=== PATIENT | female | born 1945 | race Caucasian/White ===

== ENCOUNTER 2017-07-17 22:47 | Inpatient (IN) | payer MEDICARE, OTHER ==
[~2017-07-17] VITALS: Ht 160 cm; Wt 102.7 kg
[2017-07-17 23:12] LABS: BILIRUBIN,URINE NEGATIVE (NEG); GLUCOSE,URINE 250 mg/dL (NEG); NITRITE,URINE NEGATIVE (NEG); PH,URINE 6.5; PROTEIN,URINE NEGATIVE (NEG-TRACE); UROBILINOGEN,URINE 0.2 mg/dL (0.2 mg/dL)
--- NOTE | 2017-07-17 23:15 | ED.ADGEN ---
Adult General Chief Complaint Chief Complaint: DIZZY/LIGHT HEADED HPI HPI Patient is a 71 year old woman, with a history of atrial fibrillation, hypertension, hyperlipidemia, obesity, fibromyalgia, who uses Coumadin daily, along with Sotalol, who presents to the emergency department with complaint of dizziness, lightheadedness, nausea, and shortness of breath that began around 2: 00 in the afternoon. No syncope, no injuries. Patient states she was discharged from [facility] yesterday, states that she been admitted for similar symptoms and at that time was told that she "had atrial fibrillation". She states that her heart rate was rapid, and that her heart rate was controlled. 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 She states that they did not perform additional studies aside from ECG well she was at the hospital. She states that she has been compliant with all medications. She states she was feeling better until around 2:00 in the afternoon, when she began feeling lightheaded, denies any syncope, any injuries, any focal weakness , numbness or tingling. States that she has mild shortness of breath also but no chest pain. Nausea but no vomiting. She has no swelling of extremities, no history of DVT or PE, no recent travel or surgery. Denies any recent changes in medication or missed doses. She describes a lightheadedness as though she might pass out, and also feeling as though the room is spinning around her she states she experienced previously but not currently. She states previously the symptoms of associated with rapid A. fib. Patient noted to have a heart rate of 86-90 upon arrival to the emergency department, in sinus rhythm, oxygen saturation is 98% on room air, respiratory rate is 18-20 and unlabored. Review of Systems Review of Systems Constitutional: Denies fever or chills. []Lightheadedness. Eyes: Denies change in visual acuity. [] HENT: Denies nasal congestion or sore throat. [] Respiratory: Denies cough, complaining of shortness of breath. Cardiovascular: Denies chest pain or edema. [] GI: Denies abdominal pain, nausea, vomiting, bloody stools or diarrhea. [] : Denies dysuria. [] Musculoskeletal: Denies back pain or joint pain. [] Integument: Denies rash. [] Neurologic: Denies headache, focal weakness or sensory changes. Dizziness.[] Endocrine: Denies polyuria or polydipsia. [] Lymphatic: Denies swollen glands. [] Psychiatric: Denies depression or anxiety. [] Current Medications Current Medications Current Medications Medications (Trade) Dose Ordered Sig/Ashley Start Time Stop Time Status Last Admin Dose Admin Fentanyl Citrate (Fentanyl 2ml Vial) 25 mcg PRN Q15MIN PRN 07/18/17 01:45 07/19/17 01:44 Potassium Chloride (KCl Oral Soln) 40 meq 1X ONCE 07/18/17 01:30 07/18/17 01:31 DC Allergies Allergies Allergies Coded Allergies Type Severity Reaction Last Updated Verified Penicillins Allergy Intermediate "rash 50 years ago" 07/18/17 Yes ibuprofen Allergy Intermediate "im on coumadin" 07/18/17 Yes Physical Exam Physical Exam Constitutional: Well developed, well nourished, no acute distress, non-toxic appearance. [] HENT: Normocephalic, atraumatic, bilateral external ears normal, oropharynx moist, no oral exudates, nose normal. [] Eyes: PERRLA, EOMI, conjunctiva normal, no discharge. [] Neck: Normal range of motion, no tenderness, supple, no stridor. [] Cardiovascular:Heart rate regular rhythm, no murmur, S1, S2, no rubs or gallops , soft heart sounds. [] Lungs & Thorax: Bilateral breath sounds clear to auscultation, no wheezing, rhonchi, rales. No chest wall crepitus or tenderness. [] Abdomen: Bowel sounds normal, soft, obese, no rebound, rigidity, no guarding, no tenderness, no masses, no pulsatile masses. [] Skin: Warm, dry, no erythema, no rash. [] Back: No tenderness, no CVA tenderness. [] Extremities: No tenderness, no cyanosis, no clubbing, ROM intact, no edema. [] Neurologic: Alert and oriented X 3, normal motor function, normal sensory function, no focal deficits noted. [5-5 strength in all extremities, normal neurologic examination.] Psychologic: Affect normal, judgement normal, mood normal. [] Current Patient Data Vital Signs Vital Signs Date Time Temp Pulse Resp B/P (MAP) Pulse Ox O2 Delivery O2 Flow Rate FiO2 07/17/17 22:57 98.0 90 20 181/97 (125) 98 Room Air 98.0 Lab Values Laboratory Tests Test 07/17/17 23:00 07/17/17 23:57 Urine Collection Type Unknown Urine Color Yellow Urine Clarity Clear Urine pH 6.5 Urine Specific [place] <=1.005 Urine Protein Negative mg/dL (NEG-TRACE) Urine Glucose (UA) 250 mg/dL (NEG) Urine Ketones (Stick) Negative mg/dL (NEG) Urine Blood Negative (NEG) Urine Nitrite Negative (NEG) Urine Bilirubin Negative (NEG) Urine Urobilinogen Dipstick 0.2 mg/dL (0.2 mg/dL) Urine Leukocyte Esterase Small (NEG) Urine RBC Occ /HPF (0-2) Urine WBC 5-10 /HPF (0-4) Urine Squamous Epithelial Cells Mod /LPF Urine Bacteria Few /HPF (0-FEW) Urine Mucus Slight /LPF Urine Opiates Screen Pos (NEG) Urine Methadone Screen Neg (NEG) Urine Barbiturates Neg (NEG) Urine Phencyclidine Screen Neg (NEG) Urine Amphetamine/Methamphetamine Neg (NEG) Urine Benzodiazepines Screen Neg (NEG) Urine Cocaine Screen Neg (NEG) Urine Cannabinoids Screen Neg (NEG) Urine Ethyl Alcohol Neg (NEG) White Blood Count 8.9 x10^3/uL (4.0-11.0) Red Blood Count 4.55 x10^6/uL (3.50-5.40) Hemoglobin 12.7 g/dL (12.0-15.5) Hematocrit 37.1 % (36.0-47.0) Mean Corpuscular Volume 82 fL (79-100) Mean Corpuscular Hemoglobin 28 pg (25-35) Mean Corpuscular Hemoglobin Concent 34 g/dL (31-37) Red Cell Distribution Width 16.2 % (11.5-14.5) H Platelet Count 219 x10^3/uL (140-400) Neutrophils (%) (Auto) 69 % (31-73) Lymphocytes (%) (Auto) 18 % (24-48) L Monocytes (%) (Auto) 10 % (0-9) H Eosinophils (%) (Auto) 1 % (0-3) Basophils (%) (Auto) 1 % (0-3) Neutrophils # (Auto) 6.2 x10^3uL (1.8-7.7) Lymphocytes # (Auto) 1.6 x10^3/uL (1.0-4.8) Monocytes # (Auto) 0.9 x10^3/uL (0.0-1.1) Eosinophils # (Auto) 0.1 x10^3/uL (0.0-0.7) Basophils # (Auto) 0.1 x10^3/uL (0.0-0.2) Prothrombin Time 24.2 SEC (11.7-14.0) H Prothrombin Time INR 2.3 (0.8-1.1) H PTT 57 SEC (24-38) H Sodium Level 138 mmol/L (136-145) Potassium Level 3.1 mmol/L (3.5-5.1) L Chloride Level 100 mmol/L (98-107) Carbon Dioxide Level 26 mmol/L (21-32) Anion Gap 12 (6-14) Blood Urea Nitrogen 13 mg/dL (7-20) Creatinine 0.7 mg/dL (0.6-1.0) Estimated GFR (Cockcroft-Gault) 82.0 BUN/Creatinine Ratio 19 (6-20) Glucose Level 200 mg/dL (70-99) H Calcium Level 9.2 mg/dL (8.5-10.1) Total Bilirubin 0.5 mg/dL (0.2-1.0) Aspartate Amino Transferase (AST) 16 U/L (15-37) Alanine Aminotransferase (ALT) 15 U/L (14-59) Alkaline Phosphatase 75 U/L (46-116) Troponin I Quantitative < 0.017 ng/mL (0.000-0.055) TL-Gzy-S-Type Natriuretic Peptide 360 pg/mL (0-124) H Total Protein 6.8 g/dL (6.4-8.2) Albumin 3.2 g/dL (3.4-5.0) L Albumin/Globulin Ratio 0.9 (1.0-1.7) L Lipase 138 U/L (73-393) Laboratory Tests 07/17/17 23:57 Laboratory Tests 07/17/17 23:57 EKG EKG EC: Sinus rhythm with occasional APCs noted, QTc of 477, OK 190, QRS of 104, left axis deviation with left anterior fascicular block noted, left ventricle hypertrophy noted with repolarization, [address] depression noted in lead 2, V4 and V5, abnormal ECG, does not meet STEMI criteria, no prior for comparison. As interpreted by me.[] Radiology/Procedures Radiology/Procedures Chest x-ray: One view: Patient with top normal cardiac silhouette, straightening left heart border, no infiltrates, no effusions, no pneumothorax, noted to have hardware in the neck, no soft tissue or other bony abnormalities identified. As interpreted by me.[] Course & Med Decision Making Course & Med Decision Making Pertinent Labs and Imaging studies reviewed. (See chart for details) Patient states that her dizziness is improved at this time, no syncope reported. She is agreeable to receiving evaluation the ED, I did discuss with the patient that she has not atrial fibrillation currently, and has no evidence of rapid heart rate. Patient states that she "never feels a rapid heart rate". CT of the head is unremarkable, x-ray does not reveal any concerning findings, patient noted to have hypokalemia with a K of 3.1. Otherwise laboratory studies not reveal any acutely concerning findings. I did discuss signs and patient, she is agreeable for admission to the hospital for continued monitoring and cardiology evaluation. Patient admitted to the service of Dr. Escalona, as a full admission, to the medical telemetry floor, bridge orders entered per discussion. Dragon Disclaimer Dragon Disclaimer This electronic medical record was generated, in whole or in part, using a voice recognition dictation system. Departure Impression: Primary Impression: Dizziness Additional Impression: Nausea Disposition: 09 ADMITTED INPATIENT Admitting Physician: Aline Escalona Condition: IMPROVED Problem Qualifiers KAREN DAVIS DO Jul 17, 2017 23:15
[2017-07-17 23:18] LABS: BACTERIA,URINE FEW /HPF (0-FEW); BARBITURATES NEG (NEG); BENZODIAZEPINES NEG (NEG); CANNABINOIDS NEG (NEG); COCAINE NEG (NEG); METHADONE NEG (NEG); OPIATES POS (NEG); PHENCYCLIDINE NEG (NEG); RBC,URINE OCC /HPF (0-2); SQUAMOUS EPITHELIAL CELL,UR MOD /LPF
--- NOTE | 2017-07-18 00:01 | RAD ---
CT head without contrast TECHNIQUE: [address] imaging skull base to vertex. HISTORY: Dizziness. FINDINGS: Mild generalized brain atrophy. Enlargement of the subarachnoid spaces anterior of the frontal lobes an anatomic variant. No intracranial hemorrhage, mass, hydrocephalus or infarction. Imaged orbits, paranasal sinuses, mastoids and bones are unremarkable. IMPRESSION: No acute intracranial CT abnormality. Exposure: One or more of the following individualized dose reduction techniques were utilized for this examination: 1. Automated exposure control 2. Adjustment of the mA and/or kV according to patient size 3. Use of iterative reconstruction technique Electronically signed by: Chiki Moreno MD (07/17/2017 11:57 PM) [id number]
[2017-07-18 00:05] LABS: BASO # 0.1 x10^3/uL (0.0-0.2); BASO % 1 % (0-3); EOS % 1 % (0-3); HEMATOCRIT 37.1 % (36.0-47.0); HEMOGLOBIN 12.7 g/dL (12.0-15.5); LYMPH # 1.6 x10^3/uL (1.0-4.8); LYMPH % 18 % (24-48); MEAN CORPUSCULAR HEMOGLOBIN 28 pg (25-35); MEAN CORPUSCULAR HGB CONC 34 g/dL (31-37); MEAN CORPUSCULAR VOLUME 82 fL (79-100); MONO % 10 % (0-9); NEUT % 69 % (31-73); PLATELET COUNT 219 x10^3/uL (140-400); RED BLOOD COUNT 4.55 x10^6/uL (3.50-5.40); RED CELL DISTRIBUTION WIDTH 16.2 % (11.5-14.5); WHITE BLOOD COUNT 8.9 x10^3/uL (4.0-11.0)
[2017-07-18] MEDS ORDERED: GLIP5TAB22 PO (00:10)
[2017-07-18] MEDS ORDERED: DULO30CA2 PO (00:10)
[2017-07-18] MEDS ORDERED: DILT240C2 PO (00:11)
[2017-07-18] MEDS ORDERED: WARF5TAB7 PO (00:11)
[2017-07-18] MEDS ORDERED: SOTA80TA48 PO (00:13)
[2017-07-18] MEDS ORDERED: CHLO25TA PO (00:13)
[2017-07-18] MEDS ORDERED: FEXO60TA25 PO (00:14)
[2017-07-18] MEDS ORDERED: LISI-334 PO (00:14)
[2017-07-18] MEDS ORDERED: HYDR-2758 PO (00:15)
[2017-07-18 00:18] LABS: INR 2.3 (0.8-1.1); PROTHROMBIN TIME PATIENT 24.2 SEC (11.7-14.0)
[2017-07-18 00:28] LABS: POTASSIUM 3.1 mmol/L (3.5-5.1); TOTAL BILIRUBIN 0.5 mg/dL (0.2-1.0); TOTAL PROTEIN 6.8 g/dL (6.4-8.2)
[2017-07-18 00:51] LABS: ALBUMIN 3.2 g/dL (3.4-5.0); ALBUMIN/GLOBULIN RATIO 0.9 (1.0-1.7); CALCIUM 9.2 mg/dL (8.5-10.1); CREATININE 0.7 mg/dL (0.6-1.0)
[2017-07-18] MEDS ORDERED: POTASSIUM CHLORIDE 20 MEQ/15 ML ORAL LIQUID. PO ONE (01:30)
[2017-07-18] MEDS ORDERED: fentaNYL PF VIAL 100 MCG/2 ML VIAL IV PRN ×2 (01:45→02:00)
[2017-07-18] MEDS ORDERED: ONDANSETRON PF 4 MG/2 ML VIAL. IV PRN (02:00)
[2017-07-18] MEDS ORDERED: DEXTROSE 50% 25 GM / 50ML DISP.SYRIN. IV PRN ×2 (02:00→09:00)
[2017-07-18] MEDS ORDERED: NITROGLYCERIN SUBLINGUAL 0.4 MG BOTTLE OF 25. SL PRN (02:00)
[2017-07-18] MEDS ORDERED: ACETAMINOPHEN 325 MG TABLET. PO PRN (02:00)
[2017-07-18] MEDS ORDERED: ACETAMINOPHEN 500 MG TABLET PO ONE (02:00)
[2017-07-18] MEDS ORDERED: diphenhydrAMINE HCL 25 MG CAPSULE PO PRN (03:15)
[2017-07-18 03:20] VITALS: BP 151/69
[2017-07-18] MEDS: HYDROcodone/APAP 5/325MG 1 TAB TABLET PO PRN ×2 (04:48→20:24)
[2017-07-18 07:33] VITALS: BP 143/80
--- NOTE | 2017-07-18 07:47 | EKG ---
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
[2017-07-18] MEDS: glipiZIDE ER 2.5 MG TAB.ER.24 PO SCH (07:55)
[2017-07-18] MEDS ORDERED: INSULIN ASPART 300 UNITS/3 ML INSULN.PEN SQ SCH (08:00)
--- NOTE | 2017-07-18 08:25 | RAD ---
Portable AP upright view CXR: Clinical indications: Dizziness and shortness of breath. Comparison: None available. Findings: No acute lung infiltrate or pleural effusion or pulmonary edema or lung mass or pneumothorax is seen. The heart size, pulmonary vasculature, mediastinum and both hattie are unremarkable. Impression: No acute radiographic abnormality is seen.
[2017-07-18] MEDS: SOTALOL 80 MG TABLET. PO SCH ×2 (09:20→19:16)
[2017-07-18] MEDS: DULoxetine HCL 30 MG CAPSULE.DR PO SCH (09:20)
[2017-07-18] MEDS: LISINOPRIL 20 MG TABLET PO SCH (09:21)
[2017-07-18] MEDS: CHLORTHALIDONE 25 MG TABLET. PO SCH (09:21)
[2017-07-18 11:35] VITALS: BP 139/65
[2017-07-18] MEDS: INSULIN ASPART 300 UNITS/3 ML INSULN.PEN SQ SCH ×2 (11:48→17:00)
--- NOTE | 2017-07-18 11:50 | PDOC1 ---
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 Was found to be in NSR not afib at ER with normal VS,. Pt was still unsteady hence admitted to have obs overnight, Pt claims they did not check echo, on rate controlling agents and also on AC,. Walked to the bathroom ok but still feels occasional dizziness, LAbs ok ALl her care is on other facilities, first time here - moved recently Past Medical History Cardiovascular: AFIB, HTN Endocrine: Diabetes Past Surgical History Past Surgical History: No pertinent history Family History Family History: Hypertension Social History Smoke: No ALCOHOL: none Drugs: None Current Problem List Problem List Problems Medical Problems: (1) Dizziness Status: Acute (2) Nausea Status: Acute Problems: Current Medications Current Medications Current Medications Potassium Chloride (KCl Oral Soln) 40 meq 1X ONCE PO Last administered on 02:53; Start 07/18/17 at 01:30; Stop 07/18/17 at 01:31; Status DC Fentanyl Citrate (Fentanyl 2ml Vial) 25 mcg PRN Q15MIN PRN IV PAIN GREATER THAN 3/10; Start 07/18/17 at 01:45; Stop 07/19/17 at 01:44 Acetaminophen (Tylenol) 1,000 mg 1X ONCE PO Last administered on 07/18/17 02 :53; Start 07/18/17 at 02:00; Stop 07/18/17 at 02:01; Status DC Ondansetron HCl (Zofran) 4 mg PRN Q8HRS PRN IV NAUSEA/VOMITING; Start at 02:00; Stop 07/19/17 at 01:59 Fentanyl Citrate (Fentanyl 2ml Vial) 50 mcg PRN Q2HR PRN IV SEVERE PAIN Last administered on 07/18/17 02:54; Start 07/18/17 at 02:00; Stop 07/19/17 at 01 :59 Acetaminophen (Tylenol) 650 mg PRN Q4HRS PRN PO FEVER; Start 07/18/17 at 02:00 ; Stop 07/19/17 at 01:59 Nitroglycerin (Nitrostat) 0.4 mg PRN Q5MIN PRN SL CHEST PAIN; Start 07/18/17 at 02:00; Stop 07/19/17 at 01:59 Insulin Aspart (NovoLOG) 0-5 UNITS TIDWMEALS SQ Last administered on 08:02; Start 07/18/17 at 08:00; Stop 07/18/17 at 08:47; Status DC Dextrose (Dextrose 50%-Water Syringe) 12.5 gm PRN Q15MIN PRN IV SEE COMMENTS; Start 07/18/17 at 02:00 Diphenhydramine HCl (Benadryl) 50 mg PRN Q6HRS PRN PO ITCHING Last administered on 07/18/17 04:46; Start 07/18/17 at 03:15 Chlorthalidone (Thalitone) 25 mg DAILY PO Last administered on 07/18/17 09:21 ; Start 07/18/17 at 09:00 Diltiazem HCl (Cardizem 24hr Cd) 240 mg DAILY PO Last administered on 09:20; Start 07/18/17 at 09:00 Duloxetine HCl (Cymbalta) 30 mg DAILY PO Last administered on 07/18/17 09:20 ; Start 07/18/17 at 09:00 Acetaminophen/ Hydrocodone Bitart (Lortab 5/325) 1 tab PRN Q6HRS PRN PO MODERATE PAIN Last administered on 07/18/17 04:48; Start 07/18/17 at 03:15 Lisinopril (Prinivil) 20 mg DAILY PO Last administered on 07/18/17 09:21; Start 07/18/17 at 09:00 Sotalol HCl (Betapace) 40 mg BID PO Last administered on 07/18/17 09:20; Start 07/18/17 at 09:00 Warfarin Sodium (Coumadin) 5 mg DAILY16 PO ; Start 07/18/17 at 16:00 Glipizide (Glucotrol Er) 5 mg DAILY08 PO Last administered on 07/18/17 07:55 ; Start 07/18/17 at 08:00 Warfarin Sodium (Coumadin Per Physician) 1 each PRN DAILY PRN MC SEE COMMENTS Last administered on 07/18/17t 04:37; Start 07/18/17 at 03:45 Insulin Aspart (NovoLOG) 0-9 UNITS TIDWMEALS SQ ; Start 07/18/17 at 12:00 Dextrose (Dextrose 50%-Water Syringe) 12.5 gm PRN Q15MIN PRN IV SEE COMMENTS; Start 07/18/17 at 09:00; Status UNV Active Scripts Active Reported Hydrocodone-Apap 5-325 (Hydrocodone Bit/Acetaminophen) 1 Each Tablet 1 Tab PO PRN Q6HRS PRN Pam Allergy (Fexofenadine Hcl) 60 Mg Tablet 60 Mg PO BID Lisinopril 20 Mg Tablet 1 Tab PO DAILY Sotalol (Sotalol Hcl) 80 Mg Tablet 60 Mg PO Chlorthalidone 25 Mg Tablet 1 Tab PO DAILY Warfarin Sodium 5 Mg Tablet 1 Tab PO DAILY take only 1/2 tab every Wednesday, Wednesday and Wednesday Cardizem Cd (Diltiazem Hcl) 240 Mg Cap.er.24h 1 Cap PO DAILY Glipizide Er (Glipizide) 5 Mg Tab.er.24 1 Tab PO DAILY Cymbalta (Duloxetine Hcl) 30 Mg Capsule. 1 Cap PO DAILY Allergies Allergies: Coded Allergies: Penicillins (Verified Allergy, Intermediate, "rash 50 years ago", 07/18/17 ) ibuprofen (Verified Allergy, Intermediate, "im on coumadin" , 07/18/17) ROS Review of System weak, unsteady gait, no cp, no soa, no abd pain Physical Exam General: Alert, Oriented X3, Cooperative, No acute distress HEENT: Atraumatic, PERRLA Lungs: Clear to auscultation Heart: S1S2, RRR, no thrills, no rubs, other (HR 90s at rest) Breasts: Normal, Rt breast nml w/o mass, Lt breast nml w/o mass, Nipples normal Abdomen: Normal bowel sounds, Soft, No tenderness, No hepatosplenomegaly, No masses PELVIC: Nml ext genitalia Extremities: No clubbing, No cyanosis, No edema, Normal pulses, No tenderness/ swelling Skin: No rashes, No breakdown, No significant lesion Neuro: Normal gait, Normal speech, Strength at 5/5 X4 ext, Normal tone, Sensation intact, Cranial nerves 3-12 NL, Reflexes 2+ Psych/Mental Status: Mental status NL, Mood NL Vitals Vitals Vital Signs Date Time Temp Pulse Resp B/P (MAP) Pulse Ox O2 Delivery O2 Flow Rate FiO2 07/18/17 11:35 98.7 95 18 139/65 (89) 97 Room Air 98.7 07/18/17 06:00 2.0 Labs Labs Laboratory Tests Test 07/17/17 23:00 07/17/17 23:57 07/18/17 07:15 07/18/17 08:00 Urine Collection Type Unknown Urine Color Yellow Urine Clarity Clear Urine pH 6.5 Urine Specific [place] <=1.005 Urine Protein Negative mg/dL (NEG-TRACE) Urine Glucose (UA) 250 mg/dL (NEG) Urine Ketones (Stick) Negative mg/dL (NEG) Urine Blood Negative (NEG) Urine Nitrite Negative (NEG) Urine Bilirubin Negative (NEG) Urine Urobilinogen Dipstick 0.2 mg/dL (0.2 mg/dL) Urine Leukocyte Esterase Small (NEG) Urine RBC Occ /HPF (0-2) Urine WBC 5-10 /HPF (0-4) Urine Squamous Epithelial Cells Mod /LPF Urine Bacteria Few /HPF (0-FEW) Urine Mucus Slight /LPF Urine Opiates Screen Pos (NEG) Urine Methadone Screen Neg (NEG) Urine Barbiturates Neg (NEG) Urine Phencyclidine Screen Neg (NEG) Urine Amphetamine/Methamphetamine Neg (NEG) Urine Benzodiazepines Screen Neg (NEG) Urine Cocaine Screen Neg (NEG) Urine Cannabinoids Screen Neg (NEG) Urine Ethyl Alcohol Neg (NEG) White Blood Count 8.9 x10^3/uL (4.0-11.0) Red Blood Count 4.55 x10^6/uL (3.50-5.40) Hemoglobin 12.7 g/dL (12.0-15.5) Hematocrit 37.1 % (36.0-47.0) Mean Corpuscular Volume 82 fL (79-100) Mean Corpuscular Hemoglobin 28 pg (25-35) Mean Corpuscular Hemoglobin Concent 34 g/dL (31-37) Red Cell Distribution Width 16.2 % (11.5-14.5) Platelet Count 219 x10^3/uL (140-400) Neutrophils (%) (Auto) 69 % (31-73) Lymphocytes (%) (Auto) 18 % (24-48) Monocytes (%) (Auto) 10 % (0-9) Eosinophils (%) (Auto) 1 % (0-3) Basophils (%) (Auto) 1 % (0-3) Neutrophils # (Auto) 6.2 x10^3uL (1.8-7.7) Lymphocytes # (Auto) 1.6 x10^3/uL (1.0-4.8) Monocytes # (Auto) 0.9 x10^3/uL (0.0-1.1) Eosinophils # (Auto) 0.1 x10^3/uL (0.0-0.7) Basophils # (Auto) 0.1 x10^3/uL (0.0-0.2) Prothrombin Time 24.2 SEC (11.7-14.0) Prothromb Time International Ratio 2.3 (0.8-1.1) Activated Partial Thromboplast Time 57 SEC (24-38) Sodium Level 138 mmol/L (136-145) Potassium Level 3.1 mmol/L (3.5-5.1) Chloride Level 100 mmol/L (98-107) Carbon Dioxide Level 26 mmol/L (21-32) Anion Gap 12 (6-14) Blood Urea Nitrogen 13 mg/dL (7-20) Creatinine 0.7 mg/dL (0.6-1.0) Estimated GFR (Cockcroft-Gault) 82.0 BUN/Creatinine Ratio 19 (6-20) Glucose Level 200 mg/dL (70-99) Calcium Level 9.2 mg/dL (8.5-10.1) Total Bilirubin 0.5 mg/dL (0.2-1.0) Aspartate Amino Transf (AST/SGOT) 16 U/L (15-37) Alanine Aminotransferase (ALT/SGPT) 15 U/L (14-59) Alkaline Phosphatase 75 U/L (46-116) Troponin I Quantitative < 0.017 ng/mL (0.000-0.055) 0.039 ng/mL (0.000-0.055) KW-Cfg-F-Type Natriuretic Peptide 360 pg/mL (0-124) Total Protein 6.8 g/dL (6.4-8.2) Albumin 3.2 g/dL (3.4-5.0) Albumin/Globulin Ratio 0.9 (1.0-1.7) Lipase 138 U/L (73-393) Glucose (Fingerstick) 166 mg/dL (70-99) Laboratory Tests Test 07/17/17 23:00 07/17/17 23:57 07/18/17 07:15 07/18/17 08:00 Urine Collection Type Unknown Urine Color Yellow Urine Clarity Clear Urine pH 6.5 Urine Specific [place] <=1.005 Urine Protein Negative mg/dL (NEG-TRACE) Urine Glucose (UA) 250 mg/dL (NEG) Urine Ketones (Stick) Negative mg/dL (NEG) Urine Blood Negative (NEG) Urine Nitrite Negative (NEG) Urine Bilirubin Negative (NEG) Urine Urobilinogen Dipstick 0.2 mg/dL (0.2 mg/dL) Urine Leukocyte Esterase Small (NEG) Urine RBC Occ /HPF (0-2) Urine WBC 5-10 /HPF (0-4) Urine Squamous Epithelial Cells Mod /LPF Urine Bacteria Few /HPF (0-FEW) Urine Mucus Slight /LPF Urine Opiates Screen Pos (NEG) Urine Methadone Screen Neg (NEG) Urine Barbiturates Neg (NEG) Urine Phencyclidine Screen Neg (NEG) Urine Amphetamine/Methamphetamine Neg (NEG) Urine Benzodiazepines Screen Neg (NEG) Urine Cocaine Screen Neg (NEG) Urine Cannabinoids Screen Neg (NEG) Urine Ethyl Alcohol Neg (NEG) White Blood Count 8.9 x10^3/uL (4.0-11.0) Red Blood Count 4.55 x10^6/uL (3.50-5.40) Hemoglobin 12.7 g/dL (12.0-15.5) Hematocrit 37.1 % (36.0-47.0) Mean Corpuscular Volume 82 fL (79-100) Mean Corpuscular Hemoglobin 28 pg (25-35) Mean Corpuscular Hemoglobin Concent 34 g/dL (31-37) Red Cell Distribution Width 16.2 % (11.5-14.5) Platelet Count 219 x10^3/uL (140-400) Neutrophils (%) (Auto) 69 % (31-73) Lymphocytes (%) (Auto) 18 % (24-48) Monocytes (%) (Auto) 10 % (0-9) Eosinophils (%) (Auto) 1 % (0-3) Basophils (%) (Auto) 1 % (0-3) Neutrophils # (Auto) 6.2 x10^3uL (1.8-7.7) Lymphocytes # (Auto) 1.6 x10^3/uL (1.0-4.8) Monocytes # (Auto) 0.9 x10^3/uL (0.0-1.1) Eosinophils # (Auto) 0.1 x10^3/uL (0.0-0.7) Basophils # (Auto) 0.1 x10^3/uL (0.0-0.2) Prothrombin Time 24.2 SEC (11.7-14.0) Prothromb Time International Ratio 2.3 (0.8-1.1) Activated Partial Thromboplast Time 57 SEC (24-38) Sodium Level 138 mmol/L (136-145) Potassium Level 3.1 mmol/L (3.5-5.1) Chloride Level 100 mmol/L (98-107) Carbon Dioxide Level 26 mmol/L (21-32) Anion Gap 12 (6-14) Blood Urea Nitrogen 13 mg/dL (7-20) Creatinine 0.7 mg/dL (0.6-1.0) Estimated GFR (Cockcroft-Gault) 82.0 BUN/Creatinine Ratio 19 (6-20) Glucose Level 200 mg/dL (70-99) Calcium Level 9.2 mg/dL (8.5-10.1) Total Bilirubin 0.5 mg/dL (0.2-1.0) Aspartate Amino Transf (AST/SGOT) 16 U/L (15-37) Alanine Aminotransferase (ALT/SGPT) 15 U/L (14-59) Alkaline Phosphatase 75 U/L (46-116) Troponin I Quantitative < 0.017 ng/mL (0.000-0.055) 0.039 ng/mL (0.000-0.055) KU-Ixj-D-Type Natriuretic Peptide 360 pg/mL (0-124) Total Protein 6.8 g/dL (6.4-8.2) Albumin 3.2 g/dL (3.4-5.0) Albumin/Globulin Ratio 0.9 (1.0-1.7) Lipase 138 U/L (73-393) Glucose (Fingerstick) 166 mg/dL (70-99) VTE Prophylaxis Ordered VTE Prophylaxis Devices: Yes VTE Pharmacological Prophylaxi: Yes Assessment/Plan Assessment/Plan 1. PAroxysmal atrial fib on AC with therapeutic INR 2. DIzziness - check orthostatics, PT.OT 3. Obesity 4. HTN, DM 2 on insulin - controlled 5. Fibromyalgia, chronic- some pain her and there PLan: Admit Resume home meds including warf get records from [facility] If no recent echo, then get echo PT/OT Check orthostatics If all else ok, then home dorene with family Dw her and agrees with my plan JAZLYN KEITA MD Jul 18, 2017 11:50
--- NOTE | 2017-07-18 13:50 | PDOC2 ---
CONSULT Date of Consult Date of Consult DATE: 07/18/17 TIME: 13:44 Reason for Consult Reason for Consult: Dizziness and shortness of breath Referring Physician Referring Physician: Dr. Escalona Identification/Chief Complaint Chief Complaint Dizziness Problems: Source Source: Patient History of Present Illness Reason for Visit: The patient is a 71-year-old female who was admitted through the emergency room with episodes of dizziness and shortness of breath. The patient reportedly of been discharged the day prior to admission from [facility] for treatment for paroxysmal atrial fibrillation. She is been treated with anticoagulation and sotalol. Initial evaluation here showed a sinus rhythm with a rate of [address]-T wave changes. CT scan of the head showed no acute changes. Troponin was minimally elevated 0.039. Potassium was low at 3.1. The patient has been monitored overnight and is feeling better today. Her dizziness and weakness have improved. Past Medical History Cardiovascular: AFIB, HTN, Hyperlipidemia Endocrine: Diabetes Past Surgical History Past Surgical History: No pertinent history Family History Family History: Hypertension Social History No ALCOHOL: none Drugs: None Current Problem List Problem List Problems Medical Problems: (1) Dizziness Status: Acute (2) Nausea Status: Acute Current Medications Current Medications Current Medications Potassium Chloride (KCl Oral Soln) 40 meq 1X ONCE PO Last administered on 02:53; Start 07/18/17 at 01:30; Stop 07/18/17 at 01:31; Status DC Fentanyl Citrate (Fentanyl 2ml Vial) 25 mcg PRN Q15MIN PRN IV PAIN GREATER THAN 3/10; Start 07/18/17 at 01:45; Stop 07/19/17 at 01:44 Acetaminophen (Tylenol) 1,000 mg 1X ONCE PO Last administered on 07/18/17 02 :53; Start 07/18/17 at 02:00; Stop 07/18/17 at 02:01; Status DC Ondansetron HCl (Zofran) 4 mg PRN Q8HRS PRN IV NAUSEA/VOMITING; Start at 02:00; Stop 07/19/17 at 01:59 Fentanyl Citrate (Fentanyl 2ml Vial) 50 mcg PRN Q2HR PRN IV SEVERE PAIN Last administered on 07/18/17 02:54; Start 07/18/17 at 02:00; Stop 07/19/17 at 01 :59 Acetaminophen (Tylenol) 650 mg PRN Q4HRS PRN PO FEVER; Start 07/18/17 at 02:00 ; Stop 07/19/17 at 01:59 Nitroglycerin (Nitrostat) 0.4 mg PRN Q5MIN PRN SL CHEST PAIN; Start 07/18/17 at 02:00; Stop 07/19/17 at 01:59 Insulin Aspart (NovoLOG) 0-5 UNITS TIDWMEALS SQ Last administered on 08:02; Start 07/18/17 at 08:00; Stop 07/18/17 at 08:47; Status DC Dextrose (Dextrose 50%-Water Syringe) 12.5 gm PRN Q15MIN PRN IV SEE COMMENTS; Start 07/18/17 at 02:00 Diphenhydramine HCl (Benadryl) 50 mg PRN Q6HRS PRN PO ITCHING Last administered on 07/18/17 04:46; Start 07/18/17 at 03:15 Chlorthalidone (Thalitone) 25 mg DAILY PO Last administered on 07/18/17 09:21 ; Start 07/18/17 at 09:00 Diltiazem HCl (Cardizem 24hr Cd) 240 mg DAILY PO Last administered on 09:20; Start 07/18/17 at 09:00 Duloxetine HCl (Cymbalta) 30 mg DAILY PO Last administered on 07/18/17 09:20 ; Start 07/18/17 at 09:00 Acetaminophen/ Hydrocodone Bitart (Lortab 5/325) 1 tab PRN Q6HRS PRN PO MODERATE PAIN Last administered on 07/18/17 04:48; Start 07/18/17 at 03:15 Lisinopril (Prinivil) 20 mg DAILY PO Last administered on 07/18/17 09:21; Start 07/18/17 at 09:00 Sotalol HCl (Betapace) 40 mg BID PO Last administered on 07/18/17 09:20; Start 07/18/17 at 09:00 Warfarin Sodium (Coumadin) 5 mg DAILY16 PO ; Start 07/18/17 at 16:00 Glipizide (Glucotrol Er) 5 mg DAILY08 PO Last administered on 07/18/17 07:55 ; Start 07/18/17 at 08:00 Warfarin Sodium (Coumadin Per Physician) 1 each PRN DAILY PRN MC SEE COMMENTS Last administered on 07/18/17 12:35; Start 07/18/17 at 03:45 Insulin Aspart (NovoLOG) 0-9 UNITS TIDWMEALS SQ Last administered on 11:48; Start 07/18/17 at 12:00 Dextrose (Dextrose 50%-Water Syringe) 12.5 gm PRN Q15MIN PRN IV SEE COMMENTS; Start 07/18/17 at 09:00; Status UNV Active Scripts Active Reported Hydrocodone-Apap 5-325 (Hydrocodone Bit/Acetaminophen) 1 Each Tablet 1 Tab PO PRN Q6HRS PRN Pam Allergy (Fexofenadine Hcl) 60 Mg Tablet 60 Mg PO BID Lisinopril 20 Mg Tablet 1 Tab PO DAILY Sotalol (Sotalol Hcl) 80 Mg Tablet 60 Mg PO Chlorthalidone 25 Mg Tablet 1 Tab PO DAILY Warfarin Sodium 5 Mg Tablet 1 Tab PO DAILY take only 1/2 tab every Wednesday, Wednesday and Wednesday Cardizem Cd (Diltiazem Hcl) 240 Mg Cap.er.24h 1 Cap PO DAILY Glipizide Er (Glipizide) 5 Mg Tab.er.24 1 Tab PO DAILY Cymbalta (Duloxetine Hcl) 30 Mg Capsule. 1 Cap PO DAILY Allergies Allergies: Coded Allergies: Penicillins (Verified Allergy, Intermediate, "rash 50 years ago", 07/18/17 ) ibuprofen (Verified Allergy, Intermediate, "im on coumadin" , 07/18/17) ROS General: YES: Fatigue Cardiovascular: yes Lt [place] Physical Exam General: mild distress HEENT: Atraumatic Lungs: Clear to auscultation Heart: Regular rate Abdomen: Normal bowel sounds Vitals VITALS Vital Signs Date Time Temp Pulse Resp B/P (MAP) Pulse Ox O2 Delivery O2 Flow Rate FiO2 07/18/17 11:35 98.7 95 18 139/65 (89) 97 Room Air 98.7 07/18/17 06:00 2.0 Labs Labs Laboratory Tests Test 07/17/17 23:00 07/17/17 23:57 07/18/17 07:15 07/18/17 08:00 Urine Collection Type Unknown Urine Color Yellow Urine Clarity Clear Urine pH 6.5 Urine Specific [place] <=1.005 Urine Protein Negative mg/dL (NEG-TRACE) Urine Glucose (UA) 250 mg/dL (NEG) Urine Ketones (Stick) Negative mg/dL (NEG) Urine Blood Negative (NEG) Urine Nitrite Negative (NEG) Urine Bilirubin Negative (NEG) Urine Urobilinogen Dipstick 0.2 mg/dL (0.2 mg/dL) Urine Leukocyte Esterase Small (NEG) Urine RBC Occ /HPF (0-2) Urine WBC 5-10 /HPF (0-4) Urine Squamous Epithelial Cells Mod /LPF Urine Bacteria Few /HPF (0-FEW) Urine Mucus Slight /LPF Urine Opiates Screen Pos (NEG) Urine Methadone Screen Neg (NEG) Urine Barbiturates Neg (NEG) Urine Phencyclidine Screen Neg (NEG) Urine Amphetamine/Methamphetamine Neg (NEG) Urine Benzodiazepines Screen Neg (NEG) Urine Cocaine Screen Neg (NEG) Urine Cannabinoids Screen Neg (NEG) Urine Ethyl Alcohol Neg (NEG) White Blood Count 8.9 x10^3/uL (4.0-11.0) Red Blood Count 4.55 x10^6/uL (3.50-5.40) Hemoglobin 12.7 g/dL (12.0-15.5) Hematocrit 37.1 % (36.0-47.0) Mean Corpuscular Volume 82 fL (79-100) Mean Corpuscular Hemoglobin 28 pg (25-35) Mean Corpuscular Hemoglobin Concent 34 g/dL (31-37) Red Cell Distribution Width 16.2 % (11.5-14.5) Platelet Count 219 x10^3/uL (140-400) Neutrophils (%) (Auto) 69 % (31-73) Lymphocytes (%) (Auto) 18 % (24-48) Monocytes (%) (Auto) 10 % (0-9) Eosinophils (%) (Auto) 1 % (0-3) Basophils (%) (Auto) 1 % (0-3) Neutrophils # (Auto) 6.2 x10^3uL (1.8-7.7) Lymphocytes # (Auto) 1.6 x10^3/uL (1.0-4.8) Monocytes # (Auto) 0.9 x10^3/uL (0.0-1.1) Eosinophils # (Auto) 0.1 x10^3/uL (0.0-0.7) Basophils # (Auto) 0.1 x10^3/uL (0.0-0.2) Prothrombin Time 24.2 SEC (11.7-14.0) Prothromb Time International Ratio 2.3 (0.8-1.1) Activated Partial Thromboplast Time 57 SEC (24-38) Sodium Level 138 mmol/L (136-145) Potassium Level 3.1 mmol/L (3.5-5.1) Chloride Level 100 mmol/L (98-107) Carbon Dioxide Level 26 mmol/L (21-32) Anion Gap 12 (6-14) Blood Urea Nitrogen 13 mg/dL (7-20) Creatinine 0.7 mg/dL (0.6-1.0) Estimated GFR (Cockcroft-Gault) 82.0 BUN/Creatinine Ratio 19 (6-20) Glucose Level 200 mg/dL (70-99) Calcium Level 9.2 mg/dL (8.5-10.1) Total Bilirubin 0.5 mg/dL (0.2-1.0) Aspartate Amino Transf (AST/SGOT) 16 U/L (15-37) Alanine Aminotransferase (ALT/SGPT) 15 U/L (14-59) Alkaline Phosphatase 75 U/L (46-116) Troponin I Quantitative < 0.017 ng/mL (0.000-0.055) 0.039 ng/mL (0.000-0.055) EI-[id number]-[id number]-Type Natriuretic Peptide 360 pg/mL (0-124) Total Protein 6.8 g/dL (6.4-8.2) Albumin 3.2 g/dL (3.4-5.0) Albumin/Globulin Ratio 0.9 (1.0-1.7) Lipase 138 U/L (73-393) Glucose (Fingerstick) 166 mg/dL (70-99) Test 07/18/17 11:45 Glucose (Fingerstick) 159 mg/dL (70-99) Laboratory Tests Test 07/17/17 23:00 07/17/17 23:57 07/18/17 07:15 07/18/17 08:00 Urine Collection Type Unknown Urine Color Yellow Urine Clarity Clear Urine pH 6.5 Urine Specific [place] <=1.005 Urine Protein Negative mg/dL (NEG-TRACE) Urine Glucose (UA) 250 mg/dL (NEG) Urine Ketones (Stick) Negative mg/dL (NEG) Urine Blood Negative (NEG) Urine Nitrite Negative (NEG) Urine Bilirubin Negative (NEG) Urine Urobilinogen Dipstick 0.2 mg/dL (0.2 mg/dL) Urine Leukocyte Esterase Small (NEG) Urine RBC Occ /HPF (0-2) Urine WBC 5-10 /HPF (0-4) Urine Squamous Epithelial Cells Mod /LPF Urine Bacteria Few /HPF (0-FEW) Urine Mucus Slight /LPF Urine Opiates Screen Pos (NEG) Urine Methadone Screen Neg (NEG) Urine Barbiturates Neg (NEG) Urine Phencyclidine Screen Neg (NEG) Urine Amphetamine/Methamphetamine Neg (NEG) Urine Benzodiazepines Screen Neg (NEG) Urine Cocaine Screen Neg (NEG) Urine Cannabinoids Screen Neg (NEG) Urine Ethyl Alcohol Neg (NEG) White Blood Count 8.9 x10^3/uL (4.0-11.0) Red Blood Count 4.55 x10^6/uL (3.50-5.40) Hemoglobin 12.7 g/dL (12.0-15.5) Hematocrit 37.1 % (36.0-47.0) Mean Corpuscular Volume 82 fL (79-100) Mean Corpuscular Hemoglobin 28 pg (25-35) Mean Corpuscular Hemoglobin Concent 34 g/dL (31-37) Red Cell Distribution Width 16.2 % (11.5-14.5) Platelet Count 219 x10^3/uL (140-400) Neutrophils (%) (Auto) 69 % (31-73) Lymphocytes (%) (Auto) 18 % (24-48) Monocytes (%) (Auto) 10 % (0-9) Eosinophils (%) (Auto) 1 % (0-3) Basophils (%) (Auto) 1 % (0-3) Neutrophils # (Auto) 6.2 x10^3uL (1.8-7.7) Lymphocytes # (Auto) 1.6 x10^3/uL (1.0-4.8) Monocytes # (Auto) 0.9 x10^3/uL (0.0-1.1) Eosinophils # (Auto) 0.1 x10^3/uL (0.0-0.7) Basophils # (Auto) 0.1 x10^3/uL (0.0-0.2) Prothrombin Time 24.2 SEC (11.7-14.0) Prothromb Time International Ratio 2.3 (0.8-1.1) Activated Partial Thromboplast Time 57 SEC (24-38) Sodium Level 138 mmol/L (136-145) Potassium Level 3.1 mmol/L (3.5-5.1) Chloride Level 100 mmol/L (98-107) Carbon Dioxide Level 26 mmol/L (21-32) Anion Gap 12 (6-14) Blood Urea Nitrogen 13 mg/dL (7-20) Creatinine 0.7 mg/dL (0.6-1.0) Estimated GFR (Cockcroft-Gault) 82.0 BUN/Creatinine Ratio 19 (6-20) Glucose Level 200 mg/dL (70-99) Calcium Level 9.2 mg/dL (8.5-10.1) Total Bilirubin 0.5 mg/dL (0.2-1.0) Aspartate Amino Transf (AST/SGOT) 16 U/L (15-37) Alanine Aminotransferase (ALT/SGPT) 15 U/L (14-59) Alkaline Phosphatase 75 U/L (46-116) Troponin I Quantitative < 0.017 ng/mL (0.000-0.055) 0.039 ng/mL (0.000-0.055) [id number]-Type Natriuretic Peptide 360 pg/mL (0-124) Total Protein 6.8 g/dL (6.4-8.2) Albumin 3.2 g/dL (3.4-5.0) Albumin/Globulin Ratio 0.9 (1.0-1.7) Lipase 138 U/L (73-393) Glucose (Fingerstick) 166 mg/dL (70-99) Test 07/18/17 11:45 Glucose (Fingerstick) 159 mg/dL (70-99) Images Images CT scan of the head shows no acute changes. Chest x-ray shows no acute changes. Assessment/Plan Assessment/Plan 1. Episodes of dizziness and weakness. Patient remains in a sinus rhythm. However she has a history of paroxysmal atrial fibrillation treated with anticoagulation and sotalol. She remains in a sinus rhythm overnight with no acute EKG changes. We'll continue to monitor. We'll check an echocardiogram for LV function. We'll continue to monitor lab. 2. Shortness of breath. Uncertain etiology. It has improved. We'll check an echocardiogram. 3. Hypertension. Continue present medications. 4. Probable hyperlipidemia. We'll check a morning lab. 5. Diabetes mellitus as per the primary service. 6. Hypokalemia. Replaced and will monitor 7. Minimal elevation in troponin. We will continue to monitor. Echocardiogram as above. Thank you for allowing us to participate in the care of your patient. CAIO BOOKER MD Jul 18, 2017 13:50
[2017-07-18 15:20] VITALS: BP 106/59
[2017-07-18] MEDS: WARFARIN 5 MG TABLET. PO SCH (15:55)
[2017-07-18 19:00] VITALS: BP 110/59
[2017-07-18] MEDS ORDERED: DIGOXIN IV 500 MCG/2 ML AMPUL. IV ONE (20:15)
[2017-07-18 23:00] VITALS: BP_SYST 107; BP_SYST 115; BP_DIAS 77; BP_DIAS 95
[2017-07-19] VITALS (7 sets, daily range): BP systolic 90–131; BP diastolic 51–77
[2017-07-19 04:49] LABS: BASO # 0.1 x10^3/uL (0.0-0.2); BASO % 1 % (0-3); EOS % 2 % (0-3); HEMATOCRIT 41.5 % (36.0-47.0); HEMOGLOBIN 13.9 g/dL (12.0-15.5); LYMPH # 2.5 x10^3/uL (1.0-4.8); LYMPH % 25 % (24-48); MEAN CORPUSCULAR HEMOGLOBIN 28 pg (25-35); MEAN CORPUSCULAR HGB CONC 34 g/dL (31-37); MEAN CORPUSCULAR VOLUME 82 fL (79-100); MONO % 12 % (0-9); NEUT % 60 % (31-73); PLATELET COUNT 256 x10^3/uL (140-400); RED BLOOD COUNT 5.04 x10^6/uL (3.50-5.40); RED CELL DISTRIBUTION WIDTH 16.7 % (11.5-14.5); WHITE BLOOD COUNT 9.9 x10^3/uL (4.0-11.0)
[2017-07-19 05:39] LABS: CALCIUM 9.1 mg/dL (8.5-10.1); CREATININE 0.9 mg/dL (0.6-1.0); GFR 61.4; MAGNESIUM 1.5 mg/dL (1.8-2.4); POTASSIUM 3.9 mmol/L (3.5-5.1)
[2017-07-19 06:04] LABS: CHOLESTEROL/HDL RATIO 8.7
[2017-07-19] MEDS: glipiZIDE ER 2.5 MG TAB.ER.24 PO SCH (08:32)
[2017-07-19] MEDS: INSULIN ASPART 300 UNITS/3 ML INSULN.PEN SQ SCH ×3 (08:38→17:00)
[2017-07-19] MEDS: LISINOPRIL 20 MG TABLET PO SCH (11:12)
[2017-07-19] MEDS: CHLORTHALIDONE 25 MG TABLET. PO SCH (11:12)
[2017-07-19] MEDS: DULoxetine HCL 30 MG CAPSULE.DR PO SCH (11:12)
[2017-07-19] MEDS: SOTALOL 80 MG TABLET. PO SCH ×2 (11:14→20:47)
--- NOTE | 2017-07-19 11:28 | PDOC ---
PROGRESS NOTES Chief Complaint Chief Complaint 1. acute dizziness and weakness. paroxysmal atrial fibrillation 2. acute Shortness of breath. acute diastolic CHF, with Afib RVR 3. Hypertension. 4. marked hyperlipidemia. intolerance to statin meds, CV consulted, 5. Diabetes mellitus 2, poor control 6. Hypokalemia. and hypomag 7. obesity, BMI 40 8. History of Present Illness History of Present Illness she reports feeling worse this AM than before, weakness, headache, nausea, myalgia, possible acute viral illness Vitals Vitals Vital Signs Date Time Temp Pulse Resp B/P (MAP) Pulse Ox O2 Delivery O2 Flow Rate FiO2 07/19/17 08:51 162 111/74 07/19/17 07:00 97.6 96 Room Air 2.0 97.6 07/18/17 23:00 18 Physical Exam General: Alert, Oriented X3, Cooperative, mild distress Heart: Regular rate Lungs: Clear Abdomen: Normal bowel sounds Extremities: No clubbing, No cyanosis, No edema, Normal pulses, No tenderness/ swelling Skin: No rashes, No breakdown, No significant lesion Labs LABS Laboratory Tests Test 07/18/17 11:45 07/18/17 14:00 07/18/17 17:00 07/18/17 21:13 Glucose (Fingerstick) 159 mg/dL (70-99) 146 mg/dL (70-99) 223 mg/dL (70-99) Troponin I Quantitative 0.071 ng/mL (0.000-0.055) Test 07/19/17 03:40 07/19/17 07:52 White Blood Count 9.9 x10^3/uL (4.0-11.0) Red Blood Count 5.04 x10^6/uL (3.50-5.40) Hemoglobin 13.9 g/dL (12.0-15.5) Hematocrit 41.5 % (36.0-47.0) Mean Corpuscular Volume 82 fL (79-100) Mean Corpuscular Hemoglobin 28 pg (25-35) Mean Corpuscular Hemoglobin Concent 34 g/dL (31-37) Red Cell Distribution Width 16.7 % (11.5-14.5) Platelet Count 256 x10^3/uL (140-400) Neutrophils (%) (Auto) 60 % (31-73) Lymphocytes (%) (Auto) 25 % (24-48) Monocytes (%) (Auto) 12 % (0-9) Eosinophils (%) (Auto) 2 % (0-3) Basophils (%) (Auto) 1 % (0-3) Neutrophils # (Auto) 6.0 x10^3uL (1.8-7.7) Lymphocytes # (Auto) 2.5 x10^3/uL (1.0-4.8) Monocytes # (Auto) 1.1 x10^3/uL (0.0-1.1) Eosinophils # (Auto) 0.2 x10^3/uL (0.0-0.7) Basophils # (Auto) 0.1 x10^3/uL (0.0-0.2) Sodium Level 140 mmol/L (136-145) Potassium Level 3.9 mmol/L (3.5-5.1) Chloride Level 101 mmol/L (98-107) Carbon Dioxide Level 30 mmol/L (21-32) Anion Gap 9 (6-14) Blood Urea Nitrogen 13 mg/dL (7-20) Creatinine 0.9 mg/dL (0.6-1.0) Estimated GFR (Cockcroft-Gault) 61.4 Glucose Level 201 mg/dL (70-99) Calcium Level 9.1 mg/dL (8.5-10.1) Magnesium Level 1.5 mg/dL (1.8-2.4) Troponin I Quantitative 0.060 ng/mL (0.000-0.055) Triglycerides Level 454 mg/dL (0-150) Cholesterol Level 314 mg/dL (0-200) LDL Cholesterol, Calculated 187 mg/dL (0-100) VLDL Cholesterol, Calculated 91 mg/dL (0-40) Non-HDL Cholesterol Calculated 278 mg/dL (0-129) HDL Cholesterol 36 mg/dL (40-60) Cholesterol/HDL Ratio 8.7 Glucose (Fingerstick) 194 mg/dL (70-99) Review of Systems Review of Systems dizzy, headache, weakness, diffuse myalgia Assessment and Plan Assessmemt and Plan Problems Medical Problems: (1) Dizziness Status: Acute (2) Nausea Status: Acute Problems: Comment Review of Relevant I have reviewed the following items alejandra (where applicable) has been applied. Labs Laboratory Tests Test 07/17/17 23:00 07/17/17 23:57 07/18/17 07:15 07/18/17 08:00 Urine Collection Type Unknown Urine Color Yellow Urine Clarity Clear Urine pH 6.5 Urine Specific [place] <=1.005 Urine Protein Negative mg/dL (NEG-TRACE) Urine Glucose (UA) 250 mg/dL (NEG) Urine Ketones (Stick) Negative mg/dL (NEG) Urine Blood Negative (NEG) Urine Nitrite Negative (NEG) Urine Bilirubin Negative (NEG) Urine Urobilinogen Dipstick 0.2 mg/dL (0.2 mg/dL) Urine Leukocyte Esterase Small (NEG) Urine RBC Occ /HPF (0-2) Urine WBC 5-10 /HPF (0-4) Urine Squamous Epithelial Cells Mod /LPF Urine Bacteria Few /HPF (0-FEW) Urine Mucus Slight /LPF Urine Opiates Screen Pos (NEG) Urine Methadone Screen Neg (NEG) Urine Barbiturates Neg (NEG) Urine Phencyclidine Screen Neg (NEG) Urine Amphetamine/Methamphetamine Neg (NEG) Urine Benzodiazepines Screen Neg (NEG) Urine Cocaine Screen Neg (NEG) Urine Cannabinoids Screen Neg (NEG) Urine Ethyl Alcohol Neg (NEG) White Blood Count 8.9 x10^3/uL (4.0-11.0) Red Blood Count 4.55 x10^6/uL (3.50-5.40) Hemoglobin 12.7 g/dL (12.0-15.5) Hematocrit 37.1 % (36.0-47.0) Mean Corpuscular Volume 82 fL (79-100) Mean Corpuscular Hemoglobin 28 pg (25-35) Mean Corpuscular Hemoglobin Concent 34 g/dL (31-37) Red Cell Distribution Width 16.2 % (11.5-14.5) Platelet Count 219 x10^3/uL (140-400) Neutrophils (%) (Auto) 69 % (31-73) Lymphocytes (%) (Auto) 18 % (24-48) Monocytes (%) (Auto) 10 % (0-9) Eosinophils (%) (Auto) 1 % (0-3) Basophils (%) (Auto) 1 % (0-3) Neutrophils # (Auto) 6.2 x10^3uL (1.8-7.7) Lymphocytes # (Auto) 1.6 x10^3/uL (1.0-4.8) Monocytes # (Auto) 0.9 x10^3/uL (0.0-1.1) Eosinophils # (Auto) 0.1 x10^3/uL (0.0-0.7) Basophils # (Auto) 0.1 x10^3/uL (0.0-0.2) Prothrombin Time 24.2 SEC (11.7-14.0) Prothromb Time International Ratio 2.3 (0.8-1.1) Activated Partial Thromboplast Time 57 SEC (24-38) Sodium Level 138 mmol/L (136-145) Potassium Level 3.1 mmol/L (3.5-5.1) Chloride Level 100 mmol/L (98-107) Carbon Dioxide Level 26 mmol/L (21-32) Anion Gap 12 (6-14) Blood Urea Nitrogen 13 mg/dL (7-20) Creatinine 0.7 mg/dL (0.6-1.0) Estimated GFR (Cockcroft-Gault) 82.0 BUN/Creatinine Ratio 19 (6-20) Glucose Level 200 mg/dL (70-99) Calcium Level 9.2 mg/dL (8.5-10.1) Total Bilirubin 0.5 mg/dL (0.2-1.0) Aspartate Amino Transf (AST/SGOT) 16 U/L (15-37) Alanine Aminotransferase (ALT/SGPT) 15 U/L (14-59) Alkaline Phosphatase 75 U/L (46-116) Troponin I Quantitative < 0.017 ng/mL (0.000-0.055) 0.039 ng/mL (0.000-0.055) OM-Mwn-W-Type Natriuretic Peptide 360 pg/mL (0-124) Total Protein 6.8 g/dL (6.4-8.2) Albumin 3.2 g/dL (3.4-5.0) Albumin/Globulin Ratio 0.9 (1.0-1.7) Lipase 138 U/L (73-393) Glucose (Fingerstick) 166 mg/dL (70-99) Test 07/18/17 11:45 07/18/17 14:00 07/18/17 17:00 07/18/17 21:13 Glucose (Fingerstick) 159 mg/dL (70-99) 146 mg/dL (70-99) 223 mg/dL (70-99) Troponin I Quantitative 0.071 ng/mL (0.000-0.055) Test 07/19/17 03:40 07/19/17 07:52 White Blood Count 9.9 x10^3/uL (4.0-11.0) Red Blood Count 5.04 x10^6/uL (3.50-5.40) Hemoglobin 13.9 g/dL (12.0-15.5) Hematocrit 41.5 % (36.0-47.0) Mean Corpuscular Volume 82 fL (79-100) Mean Corpuscular Hemoglobin 28 pg (25-35) Mean Corpuscular Hemoglobin Concent 34 g/dL (31-37) Red Cell Distribution Width 16.7 % (11.5-14.5) Platelet Count 256 x10^3/uL (140-400) Neutrophils (%) (Auto) 60 % (31-73) Lymphocytes (%) (Auto) 25 % (24-48) Monocytes (%) (Auto) 12 % (0-9) Eosinophils (%) (Auto) 2 % (0-3) Basophils (%) (Auto) 1 % (0-3) Neutrophils # (Auto) 6.0 x10^3uL (1.8-7.7) Lymphocytes # (Auto) 2.5 x10^3/uL (1.0-4.8) Monocytes # (Auto) 1.1 x10^3/uL (0.0-1.1) Eosinophils # (Auto) 0.2 x10^3/uL (0.0-0.7) Basophils # (Auto) 0.1 x10^3/uL (0.0-0.2) Sodium Level 140 mmol/L (136-145) Potassium Level 3.9 mmol/L (3.5-5.1) Chloride Level 101 mmol/L (98-107) Carbon Dioxide Level 30 mmol/L (21-32) Anion Gap 9 (6-14) Blood Urea Nitrogen 13 mg/dL (7-20) Creatinine 0.9 mg/dL (0.6-1.0) Estimated GFR (Cockcroft-Gault) 61.4 Glucose Level 201 mg/dL (70-99) Calcium Level 9.1 mg/dL (8.5-10.1) Magnesium Level 1.5 mg/dL (1.8-2.4) Troponin I Quantitative 0.060 ng/mL (0.000-0.055) Triglycerides Level 454 mg/dL (0-150) Cholesterol Level 314 mg/dL (0-200) LDL Cholesterol, Calculated 187 mg/dL (0-100) VLDL Cholesterol, Calculated 91 mg/dL (0-40) Non-HDL Cholesterol Calculated 278 mg/dL (0-129) HDL Cholesterol 36 mg/dL (40-60) Cholesterol/HDL Ratio 8.7 Glucose (Fingerstick) 194 mg/dL (70-99) Laboratory Tests Test 07/18/17 11:45 07/18/17 14:00 07/18/17 17:00 07/18/17 21:13 Glucose (Fingerstick) 159 mg/dL (70-99) 146 mg/dL (70-99) 223 mg/dL (70-99) Troponin I Quantitative 0.071 ng/mL (0.000-0.055) Test 07/19/17 03:40 07/19/17 07:52 White Blood Count 9.9 x10^3/uL (4.0-11.0) Red Blood Count 5.04 x10^6/uL (3.50-5.40) Hemoglobin 13.9 g/dL (12.0-15.5) Hematocrit 41.5 % (36.0-47.0) Mean Corpuscular Volume 82 fL (79-100) Mean Corpuscular Hemoglobin 28 pg (25-35) Mean Corpuscular Hemoglobin Concent 34 g/dL (31-37) Red Cell Distribution Width 16.7 % (11.5-14.5) Platelet Count 256 x10^3/uL (140-400) Neutrophils (%) (Auto) 60 % (31-73) Lymphocytes (%) (Auto) 25 % (24-48) Monocytes (%) (Auto) 12 % (0-9) Eosinophils (%) (Auto) 2 % (0-3) Basophils (%) (Auto) 1 % (0-3) Neutrophils # (Auto) 6.0 x10^3uL (1.8-7.7) Lymphocytes # (Auto) 2.5 x10^3/uL (1.0-4.8) Monocytes # (Auto) 1.1 x10^3/uL (0.0-1.1) Eosinophils # (Auto) 0.2 x10^3/uL (0.0-0.7) Basophils # (Auto) 0.1 x10^3/uL (0.0-0.2) Sodium Level 140 mmol/L (136-145) Potassium Level 3.9 mmol/L (3.5-5.1) Chloride Level 101 mmol/L (98-107) Carbon Dioxide Level 30 mmol/L (21-32) Anion Gap 9 (6-14) Blood Urea Nitrogen 13 mg/dL (7-20) Creatinine 0.9 mg/dL (0.6-1.0) Estimated GFR (Cockcroft-Gault) 61.4 Glucose Level 201 mg/dL (70-99) Calcium Level 9.1 mg/dL (8.5-10.1) Magnesium Level 1.5 mg/dL (1.8-2.4) Troponin I Quantitative 0.060 ng/mL (0.000-0.055) Triglycerides Level 454 mg/dL (0-150) Cholesterol Level 314 mg/dL (0-200) LDL Cholesterol, Calculated 187 mg/dL (0-100) VLDL Cholesterol, Calculated 91 mg/dL (0-40) Non-HDL Cholesterol Calculated 278 mg/dL (0-129) HDL Cholesterol 36 mg/dL (40-60) Cholesterol/HDL Ratio 8.7 Glucose (Fingerstick) 194 mg/dL (70-99) Microbiology 07/17/17 Urine Culture - Preliminary, Resulted 07/17/17 Urine Culture Result 1 (AKIN) - Preliminary, Resulted Medications Current Medications Potassium Chloride (KCl Oral Soln) 40 meq 1X ONCE PO Last administered on 02:53; Start 07/18/17 at 01:30; Stop 07/18/17 at 01:31; Status DC Fentanyl Citrate (Fentanyl 2ml Vial) 25 mcg PRN Q15MIN PRN IV PAIN GREATER THAN 3/10; Start 07/18/17 at 01:45; Stop 07/19/17 at 01:44; Status DC Acetaminophen (Tylenol) 1,000 mg 1X ONCE PO Last administered on 07/18/17 02 :53; Start 07/18/17 at 02:00; Stop 07/18/17 at 02:01; Status DC Ondansetron HCl (Zofran) 4 mg PRN Q8HRS PRN IV NAUSEA/VOMITING; Start at 02:00; Stop 07/19/17 at 01:59; Status DC Fentanyl Citrate (Fentanyl 2ml Vial) 50 mcg PRN Q2HR PRN IV SEVERE PAIN Last administered on 07/18/17 02:54; Start 07/18/17 at 02:00; Stop 07/19/17 at 01 :59; Status DC Acetaminophen (Tylenol) 650 mg PRN Q4HRS PRN PO FEVER; Start 07/18/17 at 02:00 ; Stop 07/19/17 at 01:59; Status DC Nitroglycerin (Nitrostat) 0.4 mg PRN Q5MIN PRN SL CHEST PAIN; Start 07/18/17 at 02:00; Stop 07/19/17 at 01:59; Status DC Insulin Aspart (NovoLOG) 0-5 UNITS TIDWMEALS SQ Last administered on 08:02; Start 07/18/17 at 08:00; Stop 07/18/17 at 08:47; Status DC Dextrose (Dextrose 50%-Water Syringe) 12.5 gm PRN Q15MIN PRN IV SEE COMMENTS; Start 07/18/17 at 02:00 Diphenhydramine HCl (Benadryl) 50 mg PRN Q6HRS PRN PO ITCHING Last administered on 07/18/17 04:46; Start 07/18/17 at 03:15 Chlorthalidone (Thalitone) 25 mg DAILY PO Last administered on 07/18/17 09:21 ; Start 07/18/17 at 09:00 Diltiazem HCl (Cardizem 24hr Cd) 240 mg DAILY PO Last administered on 08:51; Start 07/18/17 at 09:00 Duloxetine HCl (Cymbalta) 30 mg DAILY PO Last administered on 07/18/17 09:20 ; Start 07/18/17 at 09:00 Acetaminophen/ Hydrocodone Bitart (Lortab 5/325) 1 tab PRN Q6HRS PRN PO MODERATE PAIN Last administered on 07/18/17 20:24; Start 07/18/17 at 03:15 Lisinopril (Prinivil) 20 mg DAILY PO Last administered on 07/18/17 09:21; Start 07/18/17 at 09:00 Sotalol HCl (Betapace) 40 mg BID PO Last administered on 07/18/17 19:16; Start 07/18/17 at 09:00 Warfarin Sodium (Coumadin) 5 mg DAILY16 PO Last administered on 07/18/17 15: 55; Start 07/18/17 at 16:00 Glipizide (Glucotrol Er) 5 mg DAILY08 PO Last administered on 07/19/17 08:32 ; Start 07/18/17 at 08:00 Warfarin Sodium (Coumadin Per Physician) 1 each PRN DAILY PRN MC SEE COMMENTS Last administered on 07/18/17 12:35; Start 07/18/17 at 03:45 Insulin Aspart (NovoLOG) 0-9 UNITS TIDWMEALS SQ Last administered on 08:38; Start 07/18/17 at 12:00 Dextrose (Dextrose 50%-Water Syringe) 12.5 gm PRN Q15MIN PRN IV SEE COMMENTS; Start 07/18/17 at 09:00; Status UNV Digoxin (Lanoxin) 250 mcg 1X ONCE IV Last administered on 07/18/17 20:03; Start 07/18/17 at 20:15; Stop 07/18/17 at 20:16; Status DC Active Scripts Active Reported Hydrocodone-Apap 5-325 (Hydrocodone Bit/Acetaminophen) 1 Each Tablet 1 Tab PO PRN Q6HRS PRN Pam Allergy (Fexofenadine Hcl) 60 Mg Tablet 60 Mg PO BID Lisinopril 20 Mg Tablet 1 Tab PO DAILY Sotalol (Sotalol Hcl) 80 Mg Tablet 60 Mg PO Chlorthalidone 25 Mg Tablet 1 Tab PO DAILY Warfarin Sodium 5 Mg Tablet 1 Tab PO DAILY take only 1/2 tab every Wednesday, Wednesday and Wednesday Cardizem Cd (Diltiazem Hcl) 240 Mg Cap.er.24h 1 Cap PO DAILY Glipizide Er (Glipizide) 5 Mg Tab.er.24 1 Tab PO DAILY Cymbalta (Duloxetine Hcl) 30 Mg Capsule. 1 Cap PO DAILY Vitals/I & O Vital Sign - Last 24 Hours 07/18/17 07/18/17 07/18/17 07/18/17 11:35 15:20 19:00 19:16 Temp 98.7 98.1 98.0 98.7 98.1 98.0 Pulse 95 85 75 130 Resp 18 18 B/P (MAP) 139/65 (89) 106/59 (75) 110/59 (76) 106/59 Pulse Ox 97 95 95 O2 Delivery Room Air Room Air Room Air O2 Flow Rate 2.0 07/18/17 07/18/17 07/18/17 07/18/17 20:00 20:03 20:24 21:40 Pulse 101 B/P (MAP) 107/77 Pulse Ox 95 95 O2 Delivery Room Air Room Air Room Air 07/18/17 07/18/17 07/19/17 07/19/17 23:00 23:00 03:00 07:00 Temp 98.0 98.0 98.0 97.6 98.0 98.0 98.0 97.6 Pulse 86 101 101 68 Resp 18 B/P (MAP) 115/95 (102) 107/77 (87) 107/77 (87) 111/74 (86) Pulse Ox 95 95 95 96 O2 Delivery Room Air Room Air Room Air O2 Flow Rate 2.0 2.0 2.0 07/19/17 08:51 Pulse 162 B/P (MAP) 111/74 IGGY BENJAMIN MD Jul 19, 2017 11:27
[2017-07-19] MEDS ORDERED: MAGNESIUM SULFATE 4GM 100 ML IV ONE (11:30)
[2017-07-19] MEDS ORDERED: BUTALB/APAP/CAFEIN 50/325/40MG TABLET. PO ONE (11:45)
--- NOTE | 2017-07-19 12:19 | CARD ---
APPROVED REPORT EXAM: Two-dimensional and M-mode echocardiogram with Doppler and color Doppler. Other Information Quality : Average Rhythm : Atrial Fibrillation with RVR INDICATION Atrial Fibrillation 2D DIMENSIONS RVDd2.2 (2.9-3.5cm)Left Atrium(2D)2.9 (1.6-4.0cm) IVSd1.1 (0.7-1.1cm)Aortic Root(2D)2.5 (2.0-3.7cm) LVDd3.4 (3.9-5.9cm)LVOT Diameter2.0 (1.8-2.4cm) PWd1.1 (0.7-1.1cm)LVDs2.5 (2.5-4.0cm) FS (%) 28.1 %SV27.0 ml LVEF(%)55.4 (>50%) Aortic Valve AoV Peak Elias.207.2cm/sAoV VTI23.6cm AO Peak GR.17.2mmHgLVOT Peak Elias.147.3cm/s LVOT VTI 16.90cmAO Mean GR.9mmHg UMESH (VMAX)2.57kx3TDK (VTI)2.17cm2 AI P 1/2 [id number] Mitral Valve MV DECEL [id number] E Mean Gr.2mmHg MV [id number] (PHT)5.60cm2 Tricuspid Valve TR P. [id number] [id number] TR Peak Gr.[id number] LEFT VENTRICLE The left ventricle is normal size. There is normal left ventricular wall thickness. Left ventricle sy stolic function is normal. The Ejection Fraction is 50-55%. Wall motion not well visualized due to feldman boptimal images. Tissue Doppler imaging reveals moderate left ventricular diastolic dysfunction. RIGHT VENTRICLE The right ventricle is normal size. The right ventricular systolic function is normal. ATRIA The left atrium size is normal. The right atrium size is normal. The interatrial septum is intact wit h no evidence for an atrial septal defect or patent foramen ovale as noted on 2-D or Doppler imaging. AORTIC VALVE Not well visualized. Doppler and Color Flow revealed trace to mild aortic regurgitation. There is no significant aortic valvular stenosis. MITRAL VALVE Not well visualized. There is no mitral valve stenosis. Doppler and Color Flow revealed trace mitral regurgitation. TRICUSPID VALVE Not well visualized. Doppler and Color Flow revealed trace to mild tricuspid regurgitation. The PA pr essure was estimated at 25 mmHg. There is no tricuspid valve stenosis. PULMONIC VALVE The pulmonic valve is not well visualized. Doppler and Color Flow revealed trace pulmonic valvular re gurgitation. There is no pulmonic valvular stenosis. GREAT VESSELS The aortic root is normal in size. The ascending aorta is normal in size. The IVC is normal in size a nd collapses >50% with inspiration. PERICARDIAL EFFUSION There is no evidence of significant pericardial effusion. Critical Notification Critical Value: No <Conclusion> Left ventricle systolic function is normal. The Ejection Fraction is 50-55%. Wall motion not well visualized due to suboptimal images. Tissue Doppler imaging reveals moderate left ventricular diastolic dysfunction. Suboptimal images-Technically difficult study.
[2017-07-19] MEDS ORDERED: METOPROLOL TARTRATE 5 MG/5 ML VIAL. IVP ONE ×2 (15:15→16:30)
[2017-07-19] MEDS: DIGOXIN 125 MCG TABLET. PO SCH (16:00)
[2017-07-19] MEDS ORDERED: DIGOXIN IV 500 MCG/2 ML AMPUL. IV ONE (16:15)
[2017-07-19] MEDS: WARFARIN 5 MG TABLET. PO SCH (16:25)
--- NOTE | 2017-07-19 16:27 | PDOC ---
CARDIO Progress Notes Date and Time Date of Service 07/19/2017 Time of Evaluation 1610 Subjective Subjective: No Chest Pain, No shortness of breath, No Palpitations, No Dizziness Vitals Vitals Vital Signs Date Time Temp Pulse Resp B/P (MAP) Pulse Ox O2 Delivery O2 Flow Rate FiO2 07/19/17 15:00 98.5 78 20 90/68 (75) 97 Room Air 2.0 98.5 Weight Weight [ ] Laboratory Labs Laboratory Tests Test 07/18/17 17:00 07/18/17 21:13 07/19/17 03:40 07/19/17 07:52 Glucose (Fingerstick) 146 mg/dL (70-99) 223 mg/dL (70-99) 194 mg/dL (70-99) White Blood Count 9.9 x10^3/uL (4.0-11.0) Red Blood Count 5.04 x10^6/uL (3.50-5.40) Hemoglobin 13.9 g/dL (12.0-15.5) Hematocrit 41.5 % (36.0-47.0) Mean Corpuscular Volume 82 fL (79-100) Mean Corpuscular Hemoglobin 28 pg (25-35) Mean Corpuscular Hemoglobin Concent 34 g/dL (31-37) Red Cell Distribution Width 16.7 % (11.5-14.5) Platelet Count 256 x10^3/uL (140-400) Neutrophils (%) (Auto) 60 % (31-73) Lymphocytes (%) (Auto) 25 % (24-48) Monocytes (%) (Auto) 12 % (0-9) Eosinophils (%) (Auto) 2 % (0-3) Basophils (%) (Auto) 1 % (0-3) Neutrophils # (Auto) 6.0 x10^3uL (1.8-7.7) Lymphocytes # (Auto) 2.5 x10^3/uL (1.0-4.8) Monocytes # (Auto) 1.1 x10^3/uL (0.0-1.1) Eosinophils # (Auto) 0.2 x10^3/uL (0.0-0.7) Basophils # (Auto) 0.1 x10^3/uL (0.0-0.2) Sodium Level 140 mmol/L (136-145) Potassium Level 3.9 mmol/L (3.5-5.1) Chloride Level 101 mmol/L (98-107) Carbon Dioxide Level 30 mmol/L (21-32) Anion Gap 9 (6-14) Blood Urea Nitrogen 13 mg/dL (7-20) Creatinine 0.9 mg/dL (0.6-1.0) Estimated GFR (Cockcroft-Gault) 61.4 Glucose Level 201 mg/dL (70-99) Calcium Level 9.1 mg/dL (8.5-10.1) Magnesium Level 1.5 mg/dL (1.8-2.4) Troponin I Quantitative 0.060 ng/mL (0.000-0.055) Triglycerides Level 454 mg/dL (0-150) Cholesterol Level 314 mg/dL (0-200) LDL Cholesterol, Calculated 187 mg/dL (0-100) VLDL Cholesterol, Calculated 91 mg/dL (0-40) Non-HDL Cholesterol Calculated 278 mg/dL (0-129) HDL Cholesterol 36 mg/dL (40-60) Cholesterol/HDL Ratio 8.7 Microbiology Micro Microbiology 07/17/17 Urine Culture - Preliminary, Resulted 07/17/17 Urine Culture Result 1 (AKIN) - Preliminary, Resulted Physical Exam HEENT: Neck Supple W Full Motion Chest: Symmetric LUNGS: Clear to Auscultation Heart: S1S2, irregularly irregular (AFIB RVR) Abdomen: Soft N/T Extremities: No Edema, No Calf Tenderness Neurology: alert, oriented, follow commands Assessment Assessment 1. AFIB RVR: likely cause of dizziness and SOA. These symptoms are better currently but HR is 110-140s. 2. HTN: low end likely due to above. 3. DM2/HLP 4. Hypokalemia/hypomagnesemia 5. Elevated troponin: peaked at 0.07, demand mediated. Recommendations 1. Transfer to CVC. Dig IV x1 lopressor in 2.5 mg IV increments if BP if able. 2. Replace Mg and K. INR 3. Possible ELENI/CVN tomorrow. Continue with coumadin. 4. Will plan for MPI once HR is better. Pt is CP free and no SOA. 5. On sotalol and cardizem and lisinopril. Will reeval needs once BP is more adequate. GIA MCNAMARA ASSESSMENT DIRECTOR Jul 19, 2017 16:27
[2017-07-19] MEDS: IV NORMAL SALINE 1000ML BAG 1,000 ML IV SCH (16:30)
[2017-07-19 16:45] LABS: INR 2.2 (0.8-1.1); PROTHROMBIN TIME PATIENT 23.1 SEC (11.7-14.0)
--- NOTE | 2017-07-19 16:56 | EKG ---
[facility] [address] [place] [address] Test Date: 2017-07-19 Test Time: 16:54:22 Pat Name: SYLVESTER LIU Department: Room: 260 1 Gender: F Incident Response Manager: : 1945 Requested By: GIA MCNAMARA Order Number: [id number] Reading MD: Alexandre [place] Measurements Intervals [place] Rate: 131 P: -39 [place]: 128 QRS: -41 QRSD: 106 T: 139 QT: 324 QTc: 484 Interpretive Statements ATRIAL FIBRILLATION WITH RVR LATERAL SUBENDOCARDIAL ISCHEMIA Electronically Signed On 08-02-2017 9:18:42 CDT by Alexandre [place]
[2017-07-20] MEDS: ONDANSETRON PF 4 MG/2 ML VIAL. IV PRN ×2 (00:30→21:34)
[2017-07-20] MEDS: IV NORMAL SALINE 1000ML BAG 1,000 ML IV SCH ×2 (02:57→19:10)
[2017-07-20 03:20] VITALS: BP 151/90
[2017-07-20 05:38] LABS: CALCIUM 9.2 mg/dL (8.5-10.1); CREATININE 0.9 mg/dL (0.6-1.0); GFR 61.4; MAGNESIUM 1.8 mg/dL (1.8-2.4); POTASSIUM 3.6 mmol/L (3.5-5.1)
[2017-07-20 07:00] VITALS: BP 118/73
--- NOTE | 2017-07-20 09:13 | EKG ---
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
[2017-07-20] MEDS: SOTALOL 80 MG TABLET. PO SCH ×2 (09:30→21:30)
[2017-07-20] MEDS: LISINOPRIL 20 MG TABLET PO SCH (09:30)
[2017-07-20] MEDS: DIGOXIN 125 MCG TABLET. PO SCH (09:31)
[2017-07-20] MEDS: DULoxetine HCL 30 MG CAPSULE.DR PO SCH (09:31)
[2017-07-20] MEDS: INSULIN ASPART 300 UNITS/3 ML INSULN.PEN SQ SCH ×3 (09:45→18:00)
[2017-07-20] MEDS: CHLORTHALIDONE 25 MG TABLET. PO SCH (09:45)
[2017-07-20] MEDS: glipiZIDE ER 2.5 MG TAB.ER.24 PO SCH (09:46)
[2017-07-20] MEDS ORDERED: 0.9 % SODIUM CHLORIDE 10 ML DISP.SYRIN. IV PRN ×2 (10:00)
[2017-07-20] MEDS ORDERED: LIDOCAINE 2% VISCOUS 15 ML SOLUTION. MM ONE (10:00)
[2017-07-20] MEDS ORDERED: LIDOCAINE 2% TOPICAL JELLY 5GM TUBE. TP ONE (10:00)
[2017-07-20] MEDS ORDERED: BENZOCAINE ONE 20% MUCOSAL SPRAY. MM (10:00)
[2017-07-20] MEDS ORDERED: LIDOCAINE 2% TOPICAL JELLY 30GM TUBE. TP ONE (10:52)
[2017-07-20 11:00] VITALS: BP 113/65
--- NOTE | 2017-07-20 11:52 | PDOC ---
PROGRESS NOTES Chief Complaint Chief Complaint 1. acute dizziness and weakness. paroxysmal atrial fibrillation 2. acute Shortness of breath. acute diastolic CHF, with Afib RVR 3. Hypertension. 4. marked hyperlipidemia. intolerance to statin meds, CV consulted, 5. Diabetes mellitus 2, poor control 6. Hypokalemia. and hypomag 7. obesity, BMI 40 8. UTI History of Present Illness History of Present Illness Saw patient at bed side. She is alert, oriented and able to carry a conversation. She looks better, however, she is still in a.fib. HR= 78 when supine and HJ=697 when sitting. Possible ELENI today. Vitals Vitals Vital Signs Date Time Temp Pulse Resp B/P (MAP) Pulse Ox O2 Delivery O2 Flow Rate FiO2 07/20/17 09:31 76 118/73 07/20/17 08:00 Room Air 07/20/17 07:00 97.3 19 93 97.3 07/19/17 16:48 2.0 Physical Exam General: Alert, Oriented X3, Cooperative, mild distress Heart: Other (A. fib) Lungs: Clear Abdomen: Normal bowel sounds Extremities: No clubbing, No cyanosis, No edema, Normal pulses, No tenderness/ swelling Skin: No rashes, No breakdown, No significant lesion Labs LABS Laboratory Tests Test 07/19/17 11:52 07/19/17 17:55 07/19/17 21:05 07/20/17 04:50 Glucose (Fingerstick) 213 mg/dL (70-99) 172 mg/dL (70-99) 198 mg/dL (70-99) Sodium Level 138 mmol/L (136-145) Potassium Level 3.6 mmol/L (3.5-5.1) Chloride Level 99 mmol/L (98-107) Carbon Dioxide Level 29 mmol/L (21-32) Anion Gap 10 (6-14) Blood Urea Nitrogen 15 mg/dL (7-20) Creatinine 0.9 mg/dL (0.6-1.0) Estimated GFR (Cockcroft-Gault) 61.4 Glucose Level 265 mg/dL (70-99) Calcium Level 9.2 mg/dL (8.5-10.1) Magnesium Level 1.8 mg/dL (1.8-2.4) Thyroid Stimulating Hormone (TSH) 1.705 uIU/mL (0.358-3.74) Test 07/20/17 07:54 Glucose (Fingerstick) 229 mg/dL (70-99) Review of Systems Review of Systems fatigue and weakness Assessment and Plan Assessmemt and Plan Problems Medical Problems: (1) Dizziness Status: Acute (2) Nausea Status: Acute Assessment: A.fib with RVR Acute dizziness and weakness. paroxysmal atrial fibrillation Acute Shortness of breath. acute diastolic CHF Hypertension. Marked hyperlipidemia. intolerance to statin meds, CV consulted, Diabetes mellitus 2, poor control Hypokalemia. and hypomag Obesity, BMI 40 UTI Plan: Possible ELENI today Levaquin 500mg for UTI Repeat labs Order BMP Continue cardiac monitoring Problems: Comment Review of Relevant I have reviewed the following items alejandra (where applicable) has been applied. Labs Laboratory Tests Test 07/18/17 11:45 07/18/17 14:00 07/18/17 17:00 07/18/17 21:13 Glucose (Fingerstick) 159 mg/dL (70-99) 146 mg/dL (70-99) 223 mg/dL (70-99) Troponin I Quantitative 0.071 ng/mL (0.000-0.055) Test 07/19/17 03:40 07/19/17 07:52 07/19/17 11:52 07/19/17 17:55 White Blood Count 9.9 x10^3/uL (4.0-11.0) Red Blood Count 5.04 x10^6/uL (3.50-5.40) Hemoglobin 13.9 g/dL (12.0-15.5) Hematocrit 41.5 % (36.0-47.0) Mean Corpuscular Volume 82 fL (79-100) Mean Corpuscular Hemoglobin 28 pg (25-35) Mean Corpuscular Hemoglobin Concent 34 g/dL (31-37) Red Cell Distribution Width 16.7 % (11.5-14.5) Platelet Count 256 x10^3/uL (140-400) Neutrophils (%) (Auto) 60 % (31-73) Lymphocytes (%) (Auto) 25 % (24-48) Monocytes (%) (Auto) 12 % (0-9) Eosinophils (%) (Auto) 2 % (0-3) Basophils (%) (Auto) 1 % (0-3) Neutrophils # (Auto) 6.0 x10^3uL (1.8-7.7) Lymphocytes # (Auto) 2.5 x10^3/uL (1.0-4.8) Monocytes # (Auto) 1.1 x10^3/uL (0.0-1.1) Eosinophils # (Auto) 0.2 x10^3/uL (0.0-0.7) Basophils # (Auto) 0.1 x10^3/uL (0.0-0.2) Prothrombin Time 23.1 SEC (11.7-14.0) Prothromb Time International Ratio 2.2 (0.8-1.1) Sodium Level 140 mmol/L (136-145) Potassium Level 3.9 mmol/L (3.5-5.1) Chloride Level 101 mmol/L (98-107) Carbon Dioxide Level 30 mmol/L (21-32) Anion Gap 9 (6-14) Blood Urea Nitrogen 13 mg/dL (7-20) Creatinine 0.9 mg/dL (0.6-1.0) Estimated GFR (Cockcroft-Gault) 61.4 Glucose Level 201 mg/dL (70-99) Calcium Level 9.1 mg/dL (8.5-10.1) Magnesium Level 1.5 mg/dL (1.8-2.4) Troponin I Quantitative 0.060 ng/mL (0.000-0.055) Triglycerides Level 454 mg/dL (0-150) Cholesterol Level 314 mg/dL (0-200) LDL Cholesterol, Calculated 187 mg/dL (0-100) VLDL Cholesterol, Calculated 91 mg/dL (0-40) Non-HDL Cholesterol Calculated 278 mg/dL (0-129) HDL Cholesterol 36 mg/dL (40-60) Cholesterol/HDL Ratio 8.7 Glucose (Fingerstick) 194 mg/dL (70-99) 213 mg/dL (70-99) 172 mg/dL (70-99) Test 07/19/17 21:05 07/20/17 04:50 07/20/17 07:54 Glucose (Fingerstick) 198 mg/dL (70-99) 229 mg/dL (70-99) Sodium Level 138 mmol/L (136-145) Potassium Level 3.6 mmol/L (3.5-5.1) Chloride Level 99 mmol/L (98-107) Carbon Dioxide Level 29 mmol/L (21-32) Anion Gap 10 (6-14) Blood Urea Nitrogen 15 mg/dL (7-20) Creatinine 0.9 mg/dL (0.6-1.0) Estimated GFR (Cockcroft-Gault) 61.4 Glucose Level 265 mg/dL (70-99) Calcium Level 9.2 mg/dL (8.5-10.1) Magnesium Level 1.8 mg/dL (1.8-2.4) Thyroid Stimulating Hormone (TSH) 1.705 uIU/mL (0.358-3.74) Laboratory Tests Test 07/19/17 11:52 07/19/17 17:55 07/19/17 21:05 07/20/17 04:50 Glucose (Fingerstick) 213 mg/dL (70-99) 172 mg/dL (70-99) 198 mg/dL (70-99) Sodium Level 138 mmol/L (136-145) Potassium Level 3.6 mmol/L (3.5-5.1) Chloride Level 99 mmol/L (98-107) Carbon Dioxide Level 29 mmol/L (21-32) Anion Gap 10 (6-14) Blood Urea Nitrogen 15 mg/dL (7-20) Creatinine 0.9 mg/dL (0.6-1.0) Estimated GFR (Cockcroft-Gault) 61.4 Glucose Level 265 mg/dL (70-99) Calcium Level 9.2 mg/dL (8.5-10.1) Magnesium Level 1.8 mg/dL (1.8-2.4) Thyroid Stimulating Hormone (TSH) 1.705 uIU/mL (0.358-3.74) Test 07/20/17 07:54 Glucose (Fingerstick) 229 mg/dL (70-99) Microbiology 07/17/17 Urine Culture - Preliminary, Resulted 07/17/17 Urine Culture Result 1 (AKIN) - Preliminary, Resulted Medications Current Medications Potassium Chloride (KCl Oral Soln) 40 meq 1X ONCE PO Last administered on t 02:53; Start 07/18/17 at 01:30; Stop 07/18/17 at 01:31; Status DC Fentanyl Citrate (Fentanyl 2ml Vial) 25 mcg PRN Q15MIN PRN IV PAIN GREATER THAN 3/10; Start 07/18/17 at 01:45; Stop 07/19/17 at 01:44; Status DC Acetaminophen (Tylenol) 1,000 mg 1X ONCE PO Last administered on 07/18/17 02 :53; Start 07/18/17 at 02:00; Stop 07/18/17 at 02:01; Status DC Ondansetron HCl (Zofran) 4 mg PRN Q8HRS PRN IV NAUSEA/VOMITING; Start at 02:00; Stop 07/19/17 at 01:59; Status DC Fentanyl Citrate (Fentanyl 2ml Vial) 50 mcg PRN Q2HR PRN IV SEVERE PAIN Last administered on 07/18/17 02:54; Start 07/18/17 at 02:00; Stop 07/19/17 at 01 :59; Status DC Acetaminophen (Tylenol) 650 mg PRN Q4HRS PRN PO FEVER; Start 07/18/17 at 02:00 ; Stop 07/19/17 at 01:59; Status DC Nitroglycerin (Nitrostat) 0.4 mg PRN Q5MIN PRN SL CHEST PAIN; Start 07/18/17 at 02:00; Stop 07/19/17 at 01:59; Status DC Insulin Aspart (NovoLOG) 0-5 UNITS TIDWMEALS SQ Last administered on 08:02; Start 07/18/17 at 08:00; Stop 07/18/17 at 08:47; Status DC Dextrose (Dextrose 50%-Water Syringe) 12.5 gm PRN Q15MIN PRN IV SEE COMMENTS; Start 07/18/17 at 02:00 Diphenhydramine HCl (Benadryl) 50 mg PRN Q6HRS PRN PO ITCHING Last administered on 07/18/17 04:46; Start 07/18/17 at 03:15 Chlorthalidone (Thalitone) 25 mg DAILY PO Last administered on 07/20/17 09:45 ; Start 07/18/17 at 09:00 Diltiazem HCl (Cardizem 24hr Cd) 240 mg DAILY PO Last administered on 09:31; Start 07/18/17 at 09:00 Duloxetine HCl (Cymbalta) 30 mg DAILY PO Last administered on 07/20/17 09:31 ; Start 07/18/17 at 09:00 Acetaminophen/ Hydrocodone Bitart (Lortab 5/325) 1 tab PRN Q6HRS PRN PO MODERATE PAIN Last administered on 07/18/17 20:24; Start 07/18/17 at 03:15 Lisinopril (Prinivil) 20 mg DAILY PO Last administered on 07/20/17 09:30; Start 07/18/17 at 09:00 Sotalol HCl (Betapace) 40 mg BID PO Last administered on 07/19/17 11:14; Start 07/18/17 at 09:00; Stop 07/19/17 at 17:31; Status DC Warfarin Sodium (Coumadin) 5 mg DAILY16 PO Last administered on 07/19/17 16: 25; Start 07/18/17 at 16:00 Glipizide (Glucotrol Er) 5 mg DAILY08 PO Last administered on 07/20/17 09:46 ; Start 07/18/17 at 08:00 Warfarin Sodium (Coumadin Per Physician) 1 each PRN DAILY PRN MC SEE COMMENTS Last administered on 07/20/17 11:04; Start 07/18/17 at 03:45 Insulin Aspart (NovoLOG) 0-9 UNITS TIDWMEALS SQ Last administered on 09:45; Start 07/18/17 at 12:00 Dextrose (Dextrose 50%-Water Syringe) 12.5 gm PRN Q15MIN PRN IV SEE COMMENTS; Start 07/18/17 at 09:00; Status UNV Digoxin (Lanoxin) 250 mcg 1X ONCE IV Last administered on 07/18/17 20:03; Start 07/18/17 at 20:15; Stop 07/18/17 at 20:16; Status DC Magnesium Sulfate/ Dextrose 100 ml @ 25 mls/hr 1X ONCE IV Last administered on 07/19/17 13:23; Start 07/19/17 at 11:30; Stop 07/19/17 at 15:29; Status DC Acetaminophen/ Butalbital/ Caffeine (Fioricet) 1 tab 1X ONCE PO Last administered on 07/19/17 13:22; Start 07/19/17 at 11:45; Stop 07/19/17 at 11 :46; Status DC Metoprolol Tartrate (Lopressor) 5 mg 1X ONCE IVP ; Start 07/19/17 at 15:15; Stop 07/19/17 at 15:16; Status DC Digoxin (Lanoxin) 125 mcg DAILY PO Last administered on 07/20/17 09:31; Start 07/19/17 at 16:00 Digoxin (Lanoxin) 500 mcg 1X ONCE IV Last administered on 07/19/17 16:25; Start 07/19/17 at 16:15; Stop 07/19/17 at 16:16; Status DC Metoprolol Tartrate (Lopressor) 5 mg 1X ONCE IVP Last administered on 17:16; Start 07/19/17 at 16:30; Stop 07/19/17 at 16:31; Status DC Sodium Chloride 1,000 ml @ 75 mls/hr [id number] IV Last administered on 02:57; Start 07/19/17 at 16:30 Sotalol HCl (Betapace) 80 mg BID PO Last administered on 07/20/17 09:30; Start 07/19/17 at 21:00 Ondansetron HCl (Zofran) 4 mg PRN Q8HRS PRN IV NAUSEA/VOMITING Last administered on 07/20/17 00:30; Start 07/20/17 at 00:30 Sodium Chloride (Normal Saline Flush) 10 ml QSHIFT PRN IV AFTER MEDS AND BLOOD DRAWS; Start 07/20/17 at 10:00 Lidocaine HCl (Xylocaine 2% Topical 5gm Tube) 1 lian 1X ONCE TP ; Start at 10:00; Stop 07/20/17 at 10:01; Status DC Lidocaine HCl (Viscous Lidocaine) 15 ml 1X ONCE MM ; Start 07/20/17 at 10:00; Stop 07/20/17 at 10:01; Status DC Benzocaine (Hurricaine One) 2 spray 1X ONCE MM ; Start 07/20/17 at 10:00; Stop 07/20/17 at 10:01; Status DC Sodium Chloride (Normal Saline Flush) 10 ml QSHIFT PRN IV AFTER MEDS AND BLOOD DRAWS; Start 07/20/17 at 10:00 Lidocaine HCl (Xylocaine 2% Topical 30gm Tube) 30 lian STK-MED ONCE TP ; Start 07/20/17 at 10:52; Stop 07/20/17 at 10:53; Status DC Active Scripts Active Reported Hydrocodone-Apap 5-325 (Hydrocodone Bit/Acetaminophen) 1 Each Tablet 1 Tab PO PRN Q6HRS PRN Pam Allergy (Fexofenadine Hcl) 60 Mg Tablet 60 Mg PO BID Lisinopril 20 Mg Tablet 1 Tab PO DAILY Sotalol (Sotalol Hcl) 80 Mg Tablet 60 Mg PO Chlorthalidone 25 Mg Tablet 1 Tab PO DAILY Warfarin Sodium 5 Mg Tablet 1 Tab PO DAILY take only 1/2 tab every Wednesday, Wednesday and Wednesday Cardizem Cd (Diltiazem Hcl) 240 Mg Cap.er.24h 1 Cap PO DAILY Glipizide Er (Glipizide) 5 Mg Tab.er.24 1 Tab PO DAILY Cymbalta (Duloxetine Hcl) 30 Mg Capsule. 1 Cap PO DAILY Vitals/I & O Vital Sign - Last 24 Hours 07/19/17 07/19/17 07/19/17 07/19/17 15:00 16:25 16:48 17:16 Temp 98.5 98.2 98.5 98.2 Pulse 78 143 78 112 Resp 20 18 B/P (MAP) 90/68 (75) 90/68 97/63 (74) 134/76 Pulse Ox 97 94 O2 Delivery Room Air Room Air O2 Flow Rate 2.0 2.0 07/19/17 07/19/17 07/19/17 07/19/17 19:21 20:00 20:47 23:22 Temp 98.2 98.5 98.2 98.5 Pulse 104 123 88 Resp 18 18 B/P (MAP) 117/63 (81) 117/63 125/51 (75) Pulse Ox 96 97 O2 Delivery Room Air Room Air Room Air 07/20/17 07/20/17 07/20/17 07/20/17 03:20 07:00 08:00 09:30 Temp 98.8 97.3 98.8 97.3 Pulse 80 76 76 Resp 18 19 B/P (MAP) 151/90 (110) 118/73 (88) 118/73 Pulse Ox 97 93 O2 Delivery BiPAP/CPAP BiPAP/CPAP Room Air 07/20/17 07/20/17 07/20/17 09:30 09:31 09:31 Pulse 76 76 76 B/P (MAP) 118/73 118/73 118/73 CRISTY NAJERA III DO Jul 20, 2017 11:52
[2017-07-20] MEDS ORDERED: PROCHLORPERAZINE 10 MG/2 ML VIAL. ONE (14:08)
[2017-07-20 15:00] VITALS: BP 114/75
[2017-07-20] MEDS: WARFARIN 5 MG TABLET. PO SCH (15:47)
--- NOTE | 2017-07-20 15:54 | PDOC ---
CARDIO Progress Notes Date and Time Date of Service 07/20/17 Time of Evaluation 1420 Subjective Subjective: No Chest Pain, No shortness of breath, No Palpitations, No Dizziness Vitals Vitals Vital Signs Date Time Temp Pulse Resp B/P (MAP) Pulse Ox O2 Delivery O2 Flow Rate FiO2 07/20/17 12:30 97.3 76 12 91/59 93 Room Air 97.3 07/19/17 16:48 2.0 Weight Weight [ ] Laboratory Labs Laboratory Tests Test 07/19/17 17:55 07/19/17 21:05 07/20/17 04:50 07/20/17 07:54 Glucose (Fingerstick) 172 mg/dL (70-99) 198 mg/dL (70-99) 229 mg/dL (70-99) Sodium Level 138 mmol/L (136-145) Potassium Level 3.6 mmol/L (3.5-5.1) Chloride Level 99 mmol/L (98-107) Carbon Dioxide Level 29 mmol/L (21-32) Anion Gap 10 (6-14) Blood Urea Nitrogen 15 mg/dL (7-20) Creatinine 0.9 mg/dL (0.6-1.0) Estimated GFR (Cockcroft-Gault) 61.4 Glucose Level 265 mg/dL (70-99) Calcium Level 9.2 mg/dL (8.5-10.1) Magnesium Level 1.8 mg/dL (1.8-2.4) Thyroid Stimulating Hormone (TSH) 1.705 uIU/mL (0.358-3.74) Microbiology Micro Microbiology 07/17/17 Urine Culture - Preliminary, Resulted 07/17/17 Urine Culture Result 1 (AKIN) - Preliminary, Resulted Physical Exam HEENT: Neck Supple W Full Motion Chest: Symmetric LUNGS: Clear to Auscultation Heart: S1S2, irregularly irregular (with controlled ventricular rate) Abdomen: Soft N/T Extremities: No Edema, No Calf Tenderness Neurology: alert, oriented, follow commands Assessment Assessment 1. AFIB RVR: rate now well controlled. Sotalol increased; OTc 475. 2. Hypertensive; now low-normotensive. 3. DM2/HLP; add statin 4. Hypokalemia/hypomagnesemia; resolved 5. Elevated troponin: peaked at 0.07, demand mediated secondary to RVR. Echo with preserved LV function Recommendations 1. Continue rate control with Cardizem, Dig, and Sotalol. Repeat EKG in am to note OTc 2. Warfarin for stroke prophylaxis 3. Consider outpatient CVN following adequate anticoagulation therapy if she does not chemically convert with Sotalol. 4. Aim for discharge in am. 5. Consider for outpatient ischemic evaluation. ANGELA VITALE APRN Jul 20, 2017 15:54
[2017-07-20 19:20] VITALS: BP 110/66
[2017-07-20] MEDS ORDERED: ATORVASTATIN CALCIUM 40 MG TABLET. PO SCH (21:00)
[2017-07-20 23:37] VITALS: BP 106/63
[2017-07-21] MEDS: HYDROcodone/APAP 5/325MG 1 TAB TABLET PO PRN (02:23)
[2017-07-21 02:35] VITALS: BP 124/71
--- NOTE | 2017-07-21 04:34 | EKG ---
[facility] [address] [place] [address] Test Date: 2017-07-21 Test Time: 04:23:53 Pat Name: SYLVESTER LIU Department: Room: 260 1 Gender: F [employer]er: : [id number] Requested By: ANGELA VITALE Order Number: [id number] Reading MD: Alexandre [place] Measurements Intervals [place] Rate: 66 P: VA: QRS: -33 QRSD: 104 T: 146 QT: 430 QTc: 453 Interpretive Statements ATRIAL FIBRILLATION WITH CONTROLLED VENTRICULAR RESPONSE NON-SPECIFIC ST/T CHANGES POSSIBLE RAFAEL-SEPTAL INFARCT Electronically Signed On 08-03-2017 8:48:15 CDT by Alexandre Colorado
[2017-07-21 05:53] LABS: BASO % 0 % (0-3); EOS % 1 % (0-3); HEMATOCRIT 38.4 % (36.0-47.0); LYMPH % 19 % (24-48); MEAN CORPUSCULAR HEMOGLOBIN 28 pg (25-35); MEAN CORPUSCULAR HGB CONC 34 g/dL (31-37); MEAN CORPUSCULAR VOLUME 82 fL (79-100); MONO % 9 % (0-9); NEUT % 71 % (31-73); PLATELET COUNT 237 x10^3/uL (140-400); RED CELL DISTRIBUTION WIDTH 16.3 % (11.5-14.5); WHITE BLOOD COUNT 10.6 x10^3/uL (4.0-11.0)
[2017-07-21 05:57] LABS: INR 2.4 (0.8-1.1); PROTHROMBIN TIME PATIENT 24.8 SEC (11.7-14.0)
[2017-07-21 06:10] LABS: CALCIUM 9.2 mg/dL (8.5-10.1); GFR 54.3; POTASSIUM 3.8 mmol/L (3.5-5.1)
[2017-07-21 07:00] VITALS: BP 117/69
[2017-07-21] MEDS: glipiZIDE ER 2.5 MG TAB.ER.24 PO SCH (08:23)
[2017-07-21] MEDS: DULoxetine HCL 30 MG CAPSULE.DR PO SCH (08:24)
[2017-07-21] MEDS: LISINOPRIL 20 MG TABLET PO SCH (08:25)
[2017-07-21] MEDS: CHLORTHALIDONE 25 MG TABLET. PO SCH (08:25)
[2017-07-21] MEDS: SOTALOL 80 MG TABLET. PO SCH (08:25)
[2017-07-21] MEDS: DIGOXIN 125 MCG TABLET. PO SCH (08:25)
[2017-07-21] MEDS: IV NORMAL SALINE 1000ML BAG 1,000 ML IV SCH (08:30)
[2017-07-21] MEDS: INSULIN ASPART 300 UNITS/3 ML INSULN.PEN SQ SCH ×2 (08:30→12:40)
--- NOTE | 2017-07-21 09:23 | PDOC ---
CARDIO Progress Notes Date and Time Date of Service 07/21/17 Time of Evaluation 0915 Subjective Subjective: No Chest Pain, No shortness of breath, No Palpitations, No Dizziness, Other (had some mild nausea overnight) Vitals Vitals Vital Signs Date Time Temp Pulse Resp B/P (MAP) Pulse Ox O2 Delivery O2 Flow Rate FiO2 07/21/17 08:26 72 07/21/17 08:25 117/63 07/21/17 07:28 97 Room Air 2.0 07/21/17 07:00 97.9 20 97.9 Weight Weight [ ] Laboratory Labs Laboratory Tests Test 07/20/17 16:59 07/20/17 21:12 07/21/17 04:55 07/21/17 07:50 Glucose (Fingerstick) 226 mg/dL (70-99) 170 mg/dL (70-99) 207 mg/dL (70-99) White Blood Count 10.6 x10^3/uL (4.0-11.0) Red Blood Count 4.70 x10^6/uL (3.50-5.40) Hemoglobin 13.0 g/dL (12.0-15.5) Hematocrit 38.4 % (36.0-47.0) Mean Corpuscular Volume 82 fL (79-100) Mean Corpuscular Hemoglobin 28 pg (25-35) Mean Corpuscular Hemoglobin Concent 34 g/dL (31-37) Red Cell Distribution Width 16.3 % (11.5-14.5) Platelet Count 237 x10^3/uL (140-400) Neutrophils (%) (Auto) 71 % (31-73) Lymphocytes (%) (Auto) 19 % (24-48) Monocytes (%) (Auto) 9 % (0-9) Eosinophils (%) (Auto) 1 % (0-3) Basophils (%) (Auto) 0 % (0-3) Neutrophils # (Auto) 7.6 x10^3uL (1.8-7.7) Lymphocytes # (Auto) 2.0 x10^3/uL (1.0-4.8) Monocytes # (Auto) 0.9 x10^3/uL (0.0-1.1) Eosinophils # (Auto) 0.1 x10^3/uL (0.0-0.7) Basophils # (Auto) 0.0 x10^3/uL (0.0-0.2) Prothrombin Time 24.8 SEC (11.7-14.0) Prothromb Time International Ratio 2.4 (0.8-1.1) Sodium Level 140 mmol/L (136-145) Potassium Level 3.8 mmol/L (3.5-5.1) Chloride Level 101 mmol/L (98-107) Carbon Dioxide Level 31 mmol/L (21-32) Anion Gap 8 (6-14) Blood Urea Nitrogen 14 mg/dL (7-20) Creatinine 1.0 mg/dL (0.6-1.0) Estimated GFR (Cockcroft-Gault) 54.3 Glucose Level 223 mg/dL (70-99) Calcium Level 9.2 mg/dL (8.5-10.1) Microbiology Micro Microbiology 07/17/17 Urine Culture - Final, Complete 07/17/17 Urine Culture Result 1 (AKIN) - Final, Complete Physical Exam HEENT: Neck Supple W Full Motion Chest: Symmetric LUNGS: Clear to Auscultation Heart: S1S2, irregularly irregular (with controlled ventricular rate) Abdomen: Soft N/T Extremities: No Edema, No Calf Tenderness Neurology: alert, oriented, follow commands Assessment Assessment 1. AFIB RVR: rate presently well controlled. Had brief episode of RVR overnight. OTc 453-continue Sotalol at present does. 2. Hypertensive; controlled. 3. DM2/HLP;statin 4. Hypokalemia/hypomagnesemia; resolved 5. Elevated troponin: peaked at 0.07, demand mediated secondary to RVR. Echo with preserved LV function Recommendations 1. Continue rate control with Cardizem, Dig, and Sotalol. 2. Warfarin for stroke prophylaxis 3. May discharge from a CV standpoint and f/u in our office in 2 weeks as scheduled with consideration of outpatient CVN at that time. 4. Consider for outpatient ischemic evaluation. ANGELA VITALE APRN Jul 21, 2017 09:23
[2017-07-21 11:00] VITALS: BP_SYST 100; BP_SYST 94; BP_DIAS 51; BP_DIAS 55
--- NOTE | 2017-07-21 13:34 | PDOC ---
PROGRESS NOTES Chief Complaint Chief Complaint 1. acute dizziness and weakness. paroxysmal atrial fibrillation 2. acute Shortness of breath. acute diastolic CHF, with Afib RVR 3. Hypertension. 4. marked hyperlipidemia. intolerance to statin meds, CV consulted, 5. Diabetes mellitus 2, poor control 6. Hypokalemia. and hypomag 7. obesity, BMI 40 8. UTI History of Present Illness History of Present Illness Saw patient at bed side. She is alert, oriented and able to carry a conversation. She is still in a.fib. w/ RVR, but rate is now controlled. ELENI was attempted yesterday, but was halted d/t technical difficulty on insertion secondary to pt's lap-band procedure. Patient has no new c/o. Vitals Vitals Vital Signs Date Time Temp Pulse Resp B/P (MAP) Pulse Ox O2 Delivery O2 Flow Rate FiO2 07/21/17 11:00 97.8 76 20 100/55 (70) 98 BiPAP/CPAP 97.8 07/21/17 07:28 2.0 Physical Exam General: Alert, Oriented X3, Cooperative, mild distress Heart: Other (A. fib) Lungs: Clear Abdomen: Normal bowel sounds Extremities: No clubbing, No cyanosis, No edema, Normal pulses, No tenderness/ swelling Skin: No rashes, No breakdown, No significant lesion Labs LABS Laboratory Tests Test 07/20/17 16:59 07/20/17 21:12 07/21/17 04:55 07/21/17 07:50 Glucose (Fingerstick) 226 mg/dL (70-99) 170 mg/dL (70-99) 207 mg/dL (70-99) White Blood Count 10.6 x10^3/uL (4.0-11.0) Red Blood Count 4.70 x10^6/uL (3.50-5.40) Hemoglobin 13.0 g/dL (12.0-15.5) Hematocrit 38.4 % (36.0-47.0) Mean Corpuscular Volume 82 fL (79-100) Mean Corpuscular Hemoglobin 28 pg (25-35) Mean Corpuscular Hemoglobin Concent 34 g/dL (31-37) Red Cell Distribution Width 16.3 % (11.5-14.5) Platelet Count 237 x10^3/uL (140-400) Neutrophils (%) (Auto) 71 % (31-73) Lymphocytes (%) (Auto) 19 % (24-48) Monocytes (%) (Auto) 9 % (0-9) Eosinophils (%) (Auto) 1 % (0-3) Basophils (%) (Auto) 0 % (0-3) Neutrophils # (Auto) 7.6 x10^3uL (1.8-7.7) Lymphocytes # (Auto) 2.0 x10^3/uL (1.0-4.8) Monocytes # (Auto) 0.9 x10^3/uL (0.0-1.1) Eosinophils # (Auto) 0.1 x10^3/uL (0.0-0.7) Basophils # (Auto) 0.0 x10^3/uL (0.0-0.2) Prothrombin Time 24.8 SEC (11.7-14.0) Prothromb Time International Ratio 2.4 (0.8-1.1) Sodium Level 140 mmol/L (136-145) Potassium Level 3.8 mmol/L (3.5-5.1) Chloride Level 101 mmol/L (98-107) Carbon Dioxide Level 31 mmol/L (21-32) Anion Gap 8 (6-14) Blood Urea Nitrogen 14 mg/dL (7-20) Creatinine 1.0 mg/dL (0.6-1.0) Estimated GFR (Cockcroft-Gault) 54.3 Glucose Level 223 mg/dL (70-99) Calcium Level 9.2 mg/dL (8.5-10.1) Test 07/21/17 10:44 Glucose (Fingerstick) 278 mg/dL (70-99) Review of Systems Review of Systems Patient was seen at bedside in cardiovascular care unit. Is AOCx3, NAD. Denies chest pain. Denies SOB. Denies abd pain or changes in bowel function. Assessment and Plan Assessmemt and Plan Problems Medical Problems: (1) Dizziness Status: Acute (2) Nausea Status: Acute 1. acute dizziness and weakness. paroxysmal atrial fibrillation 2. acute Shortness of breath. acute diastolic CHF, with Afib RVR 3. Hypertension. 4. marked hyperlipidemia. intolerance to statin meds, CV consulted, 5. Diabetes mellitus 2, poor control 6. Hypokalemia. and hypomag 7. obesity, BMI 40 8. UTI-- culture was negative 07/21 Plan: OT/PT SNU evaluation Continue home meds Discharge probable this afternoon Problems: Comment Review of Relevant I have reviewed the following items alejandra (where applicable) has been applied. Labs Laboratory Tests Test 07/19/17 17:55 07/19/17 21:05 07/20/17 04:50 07/20/17 07:54 Glucose (Fingerstick) 172 mg/dL (70-99) 198 mg/dL (70-99) 229 mg/dL (70-99) Sodium Level 138 mmol/L (136-145) Potassium Level 3.6 mmol/L (3.5-5.1) Chloride Level 99 mmol/L (98-107) Carbon Dioxide Level 29 mmol/L (21-32) Anion Gap 10 (6-14) Blood Urea Nitrogen 15 mg/dL (7-20) Creatinine 0.9 mg/dL (0.6-1.0) Estimated GFR (Cockcroft-Gault) 61.4 Glucose Level 265 mg/dL (70-99) Calcium Level 9.2 mg/dL (8.5-10.1) Magnesium Level 1.8 mg/dL (1.8-2.4) Thyroid Stimulating Hormone (TSH) 1.705 uIU/mL (0.358-3.74) Test 07/20/17 16:59 07/20/17 21:12 07/21/17 04:55 07/21/17 07:50 Glucose (Fingerstick) 226 mg/dL (70-99) 170 mg/dL (70-99) 207 mg/dL (70-99) White Blood Count 10.6 x10^3/uL (4.0-11.0) Red Blood Count 4.70 x10^6/uL (3.50-5.40) Hemoglobin 13.0 g/dL (12.0-15.5) Hematocrit 38.4 % (36.0-47.0) Mean Corpuscular Volume 82 fL (79-100) Mean Corpuscular Hemoglobin 28 pg (25-35) Mean Corpuscular Hemoglobin Concent 34 g/dL (31-37) Red Cell Distribution Width 16.3 % (11.5-14.5) Platelet Count 237 x10^3/uL (140-400) Neutrophils (%) (Auto) 71 % (31-73) Lymphocytes (%) (Auto) 19 % (24-48) Monocytes (%) (Auto) 9 % (0-9) Eosinophils (%) (Auto) 1 % (0-3) Basophils (%) (Auto) 0 % (0-3) Neutrophils # (Auto) 7.6 x10^3uL (1.8-7.7) Lymphocytes # (Auto) 2.0 x10^3/uL (1.0-4.8) Monocytes # (Auto) 0.9 x10^3/uL (0.0-1.1) Eosinophils # (Auto) 0.1 x10^3/uL (0.0-0.7) Basophils # (Auto) 0.0 x10^3/uL (0.0-0.2) Prothrombin Time 24.8 SEC (11.7-14.0) Prothromb Time International Ratio 2.4 (0.8-1.1) Sodium Level 140 mmol/L (136-145) Potassium Level 3.8 mmol/L (3.5-5.1) Chloride Level 101 mmol/L (98-107) Carbon Dioxide Level 31 mmol/L (21-32) Anion Gap 8 (6-14) Blood Urea Nitrogen 14 mg/dL (7-20) Creatinine 1.0 mg/dL (0.6-1.0) Estimated GFR (Cockcroft-Gault) 54.3 Glucose Level 223 mg/dL (70-99) Calcium Level 9.2 mg/dL (8.5-10.1) Test 07/21/17 10:44 Glucose (Fingerstick) 278 mg/dL (70-99) Laboratory Tests Test 07/20/17 16:59 07/20/17 21:12 07/21/17 04:55 07/21/17 07:50 Glucose (Fingerstick) 226 mg/dL (70-99) 170 mg/dL (70-99) 207 mg/dL (70-99) White Blood Count 10.6 x10^3/uL (4.0-11.0) Red Blood Count 4.70 x10^6/uL (3.50-5.40) Hemoglobin 13.0 g/dL (12.0-15.5) Hematocrit 38.4 % (36.0-47.0) Mean Corpuscular Volume 82 fL (79-100) Mean Corpuscular Hemoglobin 28 pg (25-35) Mean Corpuscular Hemoglobin Concent 34 g/dL (31-37) Red Cell Distribution Width 16.3 % (11.5-14.5) Platelet Count 237 x10^3/uL (140-400) Neutrophils (%) (Auto) 71 % (31-73) Lymphocytes (%) (Auto) 19 % (24-48) Monocytes (%) (Auto) 9 % (0-9) Eosinophils (%) (Auto) 1 % (0-3) Basophils (%) (Auto) 0 % (0-3) Neutrophils # (Auto) 7.6 x10^3uL (1.8-7.7) Lymphocytes # (Auto) 2.0 x10^3/uL (1.0-4.8) Monocytes # (Auto) 0.9 x10^3/uL (0.0-1.1) Eosinophils # (Auto) 0.1 x10^3/uL (0.0-0.7) Basophils # (Auto) 0.0 x10^3/uL (0.0-0.2) Prothrombin Time 24.8 SEC (11.7-14.0) Prothromb Time International Ratio 2.4 (0.8-1.1) Sodium Level 140 mmol/L (136-145) Potassium Level 3.8 mmol/L (3.5-5.1) Chloride Level 101 mmol/L (98-107) Carbon Dioxide Level 31 mmol/L (21-32) Anion Gap 8 (6-14) Blood Urea Nitrogen 14 mg/dL (7-20) Creatinine 1.0 mg/dL (0.6-1.0) Estimated GFR (Cockcroft-Gault) 54.3 Glucose Level 223 mg/dL (70-99) Calcium Level 9.2 mg/dL (8.5-10.1) Test 07/21/17 10:44 Glucose (Fingerstick) 278 mg/dL (70-99) Microbiology 07/17/17 Urine Culture - Final, Complete 07/17/17 Urine Culture Result 1 (AKIN) - Final, Complete Medications Current Medications Potassium Chloride (KCl Oral Soln) 40 meq 1X ONCE PO Last administered on 02:53; Start 07/18/17 at 01:30; Stop 07/18/17 at 01:31; Status DC Fentanyl Citrate (Fentanyl 2ml Vial) 25 mcg PRN Q15MIN PRN IV PAIN GREATER THAN 3/10; Start 07/18/17 at 01:45; Stop 07/19/17 at 01:44; Status DC Acetaminophen (Tylenol) 1,000 mg 1X ONCE PO Last administered on 07/18/17 02 :53; Start 07/18/17 at 02:00; Stop 07/18/17 at 02:01; Status DC Ondansetron HCl (Zofran) 4 mg PRN Q8HRS PRN IV NAUSEA/VOMITING; Start at 02:00; Stop 07/19/17 at 01:59; Status DC Fentanyl Citrate (Fentanyl 2ml Vial) 50 mcg PRN Q2HR PRN IV SEVERE PAIN Last administered on 07/18/17 02:54; Start 07/18/17 at 02:00; Stop 07/19/17 at 01 :59; Status DC Acetaminophen (Tylenol) 650 mg PRN Q4HRS PRN PO FEVER; Start 07/18/17 at 02:00 ; Stop 07/19/17 at 01:59; Status DC Nitroglycerin (Nitrostat) 0.4 mg PRN Q5MIN PRN SL CHEST PAIN; Start 07/18/17 at 02:00; Stop 07/19/17 at 01:59; Status DC Insulin Aspart (NovoLOG) 0-5 UNITS TIDWMEALS SQ Last administered on 08:02; Start 07/18/17 at 08:00; Stop 07/18/17 at 08:47; Status DC Dextrose (Dextrose 50%-Water Syringe) 12.5 gm PRN Q15MIN PRN IV SEE COMMENTS; Start 07/18/17 at 02:00 Diphenhydramine HCl (Benadryl) 50 mg PRN Q6HRS PRN PO ITCHING Last administered on 07/18/17 04:46; Start 07/18/17 at 03:15 Chlorthalidone (Thalitone) 25 mg DAILY PO Last administered on 07/21/17 08:25 ; Start 07/18/17 at 09:00 Diltiazem HCl (Cardizem 24hr Cd) 240 mg DAILY PO Last administered on 08:26; Start 07/18/17 at 09:00 Duloxetine HCl (Cymbalta) 30 mg DAILY PO Last administered on 07/21/17 08:24 ; Start 07/18/17 at 09:00 Acetaminophen/ Hydrocodone Bitart (Lortab 5/325) 1 tab PRN Q6HRS PRN PO MODERATE PAIN Last administered on 07/21/17 02:23; Start 07/18/17 at 03:15 Lisinopril (Prinivil) 20 mg DAILY PO Last administered on 07/21/17 08:25; Start 07/18/17 at 09:00 Sotalol HCl (Betapace) 40 mg BID PO Last administered on 07/19/17 11:14; Start 07/18/17 at 09:00; Stop 07/19/17 at 17:31; Status DC Warfarin Sodium (Coumadin) 5 mg DAILY16 PO Last administered on 07/20/17 15: 47; Start 07/18/17 at 16:00 Glipizide (Glucotrol Er) 5 mg DAILY08 PO Last administered on 07/21/17 08:23 ; Start 07/18/17 at 08:00 Warfarin Sodium (Coumadin Per Physician) 1 each PRN DAILY PRN MC SEE COMMENTS Last administered on 07/21/17 10:30; Start 07/18/17 at 03:45 Insulin Aspart (NovoLOG) 0-9 UNITS TIDWMEALS SQ Last administered on 12:40; Start 07/18/17 at 12:00 Dextrose (Dextrose 50%-Water Syringe) 12.5 gm PRN Q15MIN PRN IV SEE COMMENTS; Start 07/18/17 at 09:00; Status UNV Digoxin (Lanoxin) 250 mcg 1X ONCE IV Last administered on 07/18/17 20:03; Start 07/18/17 at 20:15; Stop 07/18/17 at 20:16; Status DC Magnesium Sulfate/ Dextrose 100 ml @ 25 mls/hr 1X ONCE IV Last administered on 07/19/17 13:23; Start 07/19/17 at 11:30; Stop 07/19/17 at 15:29; Status DC Acetaminophen/ Butalbital/ Caffeine (Fioricet) 1 tab 1X ONCE PO Last administered on 07/19/17 13:22; Start 07/19/17 at 11:45; Stop 07/19/17 at 11 :46; Status DC Metoprolol Tartrate (Lopressor) 5 mg 1X ONCE IVP ; Start 07/19/17 at 15:15; Stop 07/19/17 at 15:16; Status DC Digoxin (Lanoxin) 125 mcg DAILY PO Last administered on 07/21/17 08:25; Start 07/19/17 at 16:00 Digoxin (Lanoxin) 500 mcg 1X ONCE IV Last administered on 07/19/17 16:25; Start 07/19/17 at 16:15; Stop 07/19/17 at 16:16; Status DC Metoprolol Tartrate (Lopressor) 5 mg 1X ONCE IVP Last administered on 17:16; Start 07/19/17 at 16:30; Stop 07/19/17 at 16:31; Status DC Sodium Chloride 1,000 ml @ 75 mls/hr [id number] IV Last administered on 02:57; Start 07/19/17 at 16:30 Sotalol HCl (Betapace) 80 mg BID PO Last administered on 07/21/17 08:25; Start 07/19/17 at 21:00 Ondansetron HCl (Zofran) 4 mg PRN Q8HRS PRN IV NAUSEA/VOMITING Last administered on 07/20/17 21:34; Start 07/20/17 at 00:30 Sodium Chloride (Normal Saline Flush) 10 ml QSHIFT PRN IV AFTER MEDS AND BLOOD DRAWS; Start 07/20/17 at 10:00 Lidocaine HCl (Xylocaine 2% Topical 5gm Tube) 1 lian 1X ONCE TP ; Start at 10:00; Stop 07/20/17 at 10:01; Status DC Lidocaine HCl (Viscous Lidocaine) 15 ml 1X ONCE MM ; Start 07/20/17 at 10:00; Stop 07/20/17 at 10:01; Status DC Benzocaine (Hurricaine One) 2 spray 1X ONCE MM ; Start 07/20/17 at 10:00; Stop 07/20/17 at 10:01; Status DC Sodium Chloride (Normal Saline Flush) 10 ml QSHIFT PRN IV AFTER MEDS AND BLOOD DRAWS; Start 07/20/17 at 10:00; Status Cancel Lidocaine HCl (Xylocaine 2% Topical 30gm Tube) 30 lian STK-MED ONCE TP ; Start 07/20/17 at 10:52; Stop 07/20/17 at 10:53; Status DC Levofloxacin/ Dextrose 100 ml @ 100 mls/hr Q24H IV Last administered on t 15:35; Start 07/20/17 at 13:00 Prochlorperazine Edisylate (Compazine) 10 mg STK-MED ONCE .ROUTE ; Start at 14:08; Stop 07/20/17 at 14:09; Status DC Atorvastatin Calcium (Lipitor) 40 mg QHS PO Last administered on 07/20/17t 21: 29; Start 07/20/17 at 21:00 Active Scripts Active Reported Hydrocodone-Apap 5-325 (Hydrocodone Bit/Acetaminophen) 1 Each Tablet 1 Tab PO PRN Q6HRS PRN Pam Allergy (Fexofenadine Hcl) 60 Mg Tablet 60 Mg PO BID Lisinopril 20 Mg Tablet 1 Tab PO DAILY Sotalol (Sotalol Hcl) 80 Mg Tablet 60 Mg PO Chlorthalidone 25 Mg Tablet 1 Tab PO DAILY Warfarin Sodium 5 Mg Tablet 1 Tab PO DAILY take only 1/2 tab every Wednesday, Wednesday and Wednesday Cardizem Cd (Diltiazem Hcl) 240 Mg Cap.er.24h 1 Cap PO DAILY Glipizide Er (Glipizide) 5 Mg Tab.er.24 1 Tab PO DAILY Cymbalta (Duloxetine Hcl) 30 Mg Capsule.dr 1 Cap PO DAILY Vitals/I & O Vital Sign - Last 24 Hours 07/20/17 07/20/17 07/20/17 07/20/17 15:00 19:20 19:45 21:30 Temp 97.8 98.1 97.8 98.1 Pulse 96 104 116 Resp 19 19 B/P (MAP) 114/75 (88) 110/66 (81) 110/66 Pulse Ox 93 99 O2 Delivery BiPAP/CPAP Room Air Room Air 10/17/17 10/18/17 10/18/17 10/18/17 23:37 02:23 02:35 07:00 Temp 98.3 98.4 97.9 98.3 98.4 97.9 Pulse 95 92 75 Resp 18 20 20 B/P (MAP) 106/63 (77) 124/71 (88) 117/69 (85) Pulse Ox 94 97 96 O2 Delivery Room Air Room Air BiPAP/CPAP BiPAP/CPAP 07/21/17 07/21/17 07/21/17 07/21/17 07:28 08:00 08:25 08:25 Pulse 72 72 B/P (MAP) 117/63 Pulse Ox 97 O2 Delivery Room Air Room Air O2 Flow Rate 2.0 07/21/17 07/21/17 07/21/17 07/21/17 08:25 08:26 11:00 11:00 Temp 97.8 97.8 Pulse 72 72 76 Resp 20 B/P (MAP) 117/63 94/51 (65) 100/55 (70) Pulse Ox 98 O2 Delivery BiPAP/CPAP Intake and Output 07/21/17 07/21/17 07/22/17 15:00 23:00 07:00 Intake Total 250 ml Balance 250 ml CRISTY NAJERA III DO Jul 21, 2017 13:34
== END 2017-07-21 14:51 | disposition home or self-care (01) | DRG 308 ==
LOC: ER 22:47 → 6 SOUTH 07-18 01:47 → 2 SOUTH 07-19 16:43
PROVIDERS: ADMIT Internal Medicine; ATTEND Internal Medicine
PROC: 5A09357 Assistance with Respiratory Ventilation, Less than 24 Consecutive Hours, Continuous Positive Airway Pressure (ICD-10-PCS; principal; 2017-07-18)
DX: I48.0 Paroxysmal atrial fibrillation (principal); I50.31 Acute diastolic (congestive) heart failure; E11.65 Type 2 diabetes mellitus with hyperglycemia; E83.42 Hypomagnesemia; Z68.41 Body mass index [BMI] 40.0-44.9, adult; E66.9 Obesity, unspecified; E78.5 Hyperlipidemia, unspecified; E87.6 Hypokalemia; I11.0 Hypertensive heart disease with heart failure; M79.7 Fibromyalgia; Z79.4 Long term (current) use of insulin; Z82.49 Family history of ischemic heart disease and other diseases of the circulatory system; Z88.0 Allergy status to penicillin; Z88.8 Allergy status to other drugs, medicaments and biological substances
CPT/HCPCS: 36415; 70450; 71010; 80048; 80053; 80061; 80307; 81001; 82962; 83690; 83735; 83880; 84443; 84484; 85025; 85610; 85730; 87086; 93005; 93306; 94660; J1160; J1815; J1956; J2405; J3010; J3475; J3490; J7030; Q0163; 99285-25; G0479

== ENCOUNTER → 2017-11-01 | Outpatient (CLI) | payer MEDICARE, OTHER ==
[~2017-11-01] MED LIST: BENZOCAINE ONE 20% MUCOSAL SPRAY.; IV NORMAL SALINE 1000ML BAG 1,000 ML; MIDAZOLAM HCL/PF 2 MG/2 ML VIAL.; fentaNYL PF VIAL 100 MCG/2 ML VIAL
== END | disposition home or self-care (01) ==
LOC: PCVCINTER 08:29
DX: I48.91 Unspecified atrial fibrillation (principal); Z88.0 Allergy status to penicillin; Z88.8 Allergy status to other drugs, medicaments and biological substances; Z88.6 Allergy status to analgesic agent; I10 Essential (primary) hypertension; G47.30 Sleep apnea, unspecified; E10.9 Type 1 diabetes mellitus without complications
CPT/HCPCS: 93312; 93325; J2250; J3010; J7030